=== PATIENT | female | born 2000 | race Caucasian/White ===

== ENCOUNTER 2021-04-18 11:09 | Emergency (ER) | payer SELFPAY ==
--- NOTE | 2021-04-18 11:19 | EDM.PDOC ---
ED HPI GENERAL MEDICAL PROBLEM - General Chief Complaint: Lower Extremity Injury/Pain Stated Complaint: UNKNOWN Time Seen by Provider: 04/18/21 11:15 Source of Information: Reports: Patient History Limitations: Reports: No Limitations - History of Present Illness INITIAL COMMENTS - FREE TEXT/NARRATIVE: HISTORY AND PHYSICAL: History of present illness: Patient is a 21-year-old female who presents to the emergency room with complaints of stepping on a nail. She [place] the [place] park [place] she stepped on a wei nail that had gone through the sole of her sandal and is in the heel of her right foot. She is fearful to have it removed, thus coming to the emergency room for evaluation. Unsure of her last tetanus update. She offers no systemic complaints and has no other concerns other bodily injury. Review of systems: As per history of present illness and below otherwise all systems reviewed and negative. Past medical history: As per history of present illness and as reviewed below otherwise noncontributory. Surgical history: As per history of present illness and as reviewed below otherwise noncontributory. Social history: See social history for further information Family history: As per history of present illness and as reviewed below otherwise noncontributory. Physical exam: General: Well developed and well nourished 21-year-old female. Alert and orientated x 3. Nontoxic in appearance and in no acute distress. Vital signs are stable and have been reviewed by me. Nursing notes were reviewed. HEENT: Atraumatic, normocephalic, pupils equal and reactive bilaterally, negative for conjunctival pallor or scleral icterus, mucous membranes moist, trachea midline. No drooling or trismus noted. No meningeal signs. No hot potato voice noted. Lungs: Clear to auscultation bilaterally. No wheezes, rales, or rhonchi. Chest nontender. Normal work of breathing, no accessory muscles used. Heart: S1S2, regular rate and rhythm without overt murmur, gallops, or rubs. No JVD. No peripheral edema Abdomen: Soft, nondistended, nontender. Skin: Puncture site to mid right heel without any surrounding erythema. Remaining skin is intact, warm, dry. No lesions or rashes noted. Hematologic: No petechiae or purpra. Mucosa appropriate color and normal nail bed color and refill. Extremities: Skin for details, ambulatory, moves all extremities per self without difficulty or deficits, negative for cords or calf pain. Neurovascular unremarkable. Strong pedal and pretibial pulses bilaterally. Cap refill less than 3 seconds bilaterally Neuro: Awake, alert, oriented. Cranial nerves II through XII unremarkable. Cerebellum unremarkable. Motor and sensory unremarkable throughout. Exam nonfocal. Psychiatric: Mood and affect are appropriate. Normal thought process. Answering questions appropriately. Notes: *This patient was seen and evaluated during the 2019 SARS-CoV-2 novel coronavirus pandemic period. Community viral transmission is ongoing at time of this encounter and the emergency department is operating under pandemic response procedures. Patient is a 21-year-old female who presents to the emergency room with complaints of a puncture wound to her right heel. The nail is currently still in the shoe and in the right heel. It appears that about 0.5 cm of nail is in the tissue and will be easy extraction. Otherwise physical exam is unremarkable. Explained procedure to patient prior to nail removal. The shoe strap was on done and the nail was easily removed as I was attempting to adjust her shoe. Appears that about 0.5 cm of the nail was in the calcaneus. I will get an x-ray to make sure there is no foreign body remaining. Area was thoroughly cleansed with chlorhexidine and allowed to soak in sterile water then irrigated with wound wash. I have talked with the patient about today's findings, in addition to providing specific details for plan of care. Reassessment at the time of disposition demonstrates that the patient is in no acute distress. The patient is stable for discharge, counseling was provided and we discussed in great detail signs and symptoms that would prompt them to return to the Emergency Department. Medication, follow up and supportive care measures were reviewed and discussed. Voices understanding and is agreeable to plan of care. Denies any further questions or concerns at this time. Diagnostics: X-ray Therapeutics: Tdap, wound care, bacitracin Prescription: Augmentin Impression: Puncture wound Plan: 1. You were evaluated today on an emergent basis. Keep the area clean and dry, cover the site with a Band-Aid until it has healed. Wash gently with mild soap and water twice daily. Continue to monitor the site for signs of improvement. Take the antibiotic as prescribed. 2. You can alternate Tylenol and ibuprofen as needed for pain and fever management. 3. We encourage you to follow up with podiatry as needed for re-evaluation and further care/management. 4. If your symptoms should worsen, new symptoms develop or any of the signs and symptoms we discussed should arise please return to the emergency room or call 911 (if needed). Definitive disposition and diagnosis as appropriate pending reevaluation and review of above. - Related Data Allergies Allergy/AdvReac Type Severity Reaction Status Date / Time No Known Allergies Allergy Verified 04/18/21 11:34 Home Meds: Home Meds Amoxicillin/Clavulanate K [Augmentin 875-125 MG] 1 tab PO BID 7 Days #14 tablet 04/18/21 [Rx] Ondansetron [Zofran ODT] 4 mg PO ASDIRECTED PRN 04/18/21 [History] Review of Systems - Review of Systems Review Of Systems: Comprehensive ROS is negative, except as noted in HPI. ED EXAM, GENERAL - Physical Exam Exam: See Below (See dictation) Course - Vital Signs Last Recorded V/S: Last Vital Signs Temp 98.1 F 04/18/21 11:35 Pulse 103 H 04/18/21 11:35 Resp 20 04/18/21 11:35 BP 143/85 H 04/18/21 11:35 Pulse Ox 96 04/18/21 11:35 - Orders/Labs/Meds Orders: Active Orders 24 hr Category Date Time Status Communication Order [RC] STAT Care 04/18/21 11:33 Ordered Vaccines to be Administered [RC] PER UNIT ROUTINE Care 04/18/21 11:29 Ordered Foot 2V Rt [CR] Stat Exams 04/18/21 11:29 Ordered Meds: Medications Discontinued Medications Generic Name Dose Route Start Last Admin Trade Name Freq PRN Reason Stop Dose Admin Acetaminophen 650 mg 04/18/21 11:29 Acetaminophen 325 Mg Tab PO 04/18/21 11:30 NOW ONE Bacitracin 1 dose 04/18/21 11:29 Bacitracin Oint 1 Gm U/D Packet TOP 04/18/21 11:30 ONETIME ONE Diphtheria/Tetanus/Acell Pertussis 0.5 ml 04/18/21 11:29 Diphtheria,Pertussis(Acell),Tetanus Vaccine 0.5 Ml Syringe IM 04/18/21 11:30 .ONCE ONE Departure - Departure Time of Disposition: 11:48 Disposition: Home, Self-Care 01 Clinical Impression: Puncture wound of foot - Discharge Information Prescriptions: Amoxicillin/Clavulanate K [Augmentin 875-125 MG] 1 tab PO BID 7 Days #14 tablet Instructions: Puncture Wound, [id number] Forms: ED Department Discharge Additional Instructions: The following information is given to patients seen in the emergency department who are being discharged to home. This information is to outline your options for follow-up care. We provide all patients seen in our emergency department with a follow-up referral. The need for follow-up, as well as the timing and circumstances, are variable depending upon the specifics of your emergency department visit. If you don't have a primary care physician on staff, we will provide you with a referral. We always advise you to contact your personal physician following an emergency department visit to inform them of the circumstance of the visit and for follow-up with them and/or the need for any referrals to a consulting specialist. The emergency department will also refer you to a specialist when appropriate. This referral assures that you have the opportunity for follow-up care with a specialist. All of these measure are taken in an effort to provide you with optimal care, which includes your follow-up. Under all circumstances we always encourage you to contact your private physician who remains a resource for coordinating your care. When calling for follow-up care, please make the office aware that this follow-up is from your recent emergency room visit. If for any reason you are refused follow-up, please contact the [facility] Emergency Department at and asked to speak to the emergency department charge nurse. [facility] [address] [place] [address] [id number] [address] [address] Thank you for choosing the [facility] emergency department in [place] for your medical needs today. It was a pleasure caring for you. Today you were seen in the emergency department for puncture wound. 1. You were evaluated today on an emergent basis. Keep the area clean and dry, cover the site with a Band-Aid until it has healed. Wash gently with mild soap and water twice daily. Continue to monitor the site for signs of improvement. Take the antibiotic as prescribed. 2. You can alternate Tylenol and ibuprofen as needed for pain and fever management. 3. We encourage you to follow up with podiatry as needed for re-evaluation and further care/management. 4. If your symptoms should worsen, new symptoms develop or any of the signs and symptoms we discussed should arise please return to the emergency room or call 911 (if needed). Sepsis Event Note (ED) - Focused Exam Vital Signs: Vital Signs Temp Pulse Resp BP Pulse Ox 04/18/21 11:35 98.1 F 103 H 20 143/85 H 96 - My Orders Last 24 Hours: My Active Orders 04/18/21 11:29 Vaccines to be Administered [RC] PER UNIT ROUTINE Foot 2V Rt [CR] Stat 04/18/21 11:33 Communication Order [RC] STAT - Assessment/Plan Last 24 Hours: My Active Orders 04/18/21 11:29 Vaccines to be Administered [RC] PER UNIT ROUTINE Foot 2V Rt [CR] Stat 04/18/21 11:33 Communication Order [RC] STAT
[2021-04-18] MEDS ORDERED: Bacitracin Oint 1 GM U/D Packet TOP ONE (11:29)
[2021-04-18] MEDS ORDERED: Diphtheria,Pertussis(Acell),Tetanus Vaccine 0.5 ML Syringe IM ONE (11:29)
[2021-04-18] MEDS ORDERED: Acetaminophen 325 MG Tab PO ONE (11:29)
--- NOTE | 2021-04-18 12:34 | CR ---
INDICATION: stepped on nail TECHNIQUE: Right foot 2 views COMPARISON: None. FINDINGS: Bones: Alignment is normal. No fractures or bone lesions. Joint spaces: Unremarkable. Soft tissues: Unremarkable. IMPRESSION: Unremarkable right foot. Dictated by: Diaz Huntley MD @ 04/18/2021 12:32:48 (Electronically Signed)
== END 2021-04-18 12:44 | disposition home or self-care (01) ==
LOC: MW.ED 11:09
DX: S91.331A Puncture wound without foreign body, right foot, initial encounter (principal); Z23 Encounter for immunization; W45.0XXA Nail entering through skin, initial encounter
CPT/HCPCS: 73620; 90471; 90715; 99283; A9270

== ENCOUNTER 2021-05-09 13:47 | Emergency (ER) | payer SELFPAY ==
[2021-05-09] MEDS ORDERED: Sodium Chloride 0.9% 10 ML Syringe FLUSH PRN (14:40)
[2021-05-09] MEDS ORDERED: Sodium Chloride 0.9% 2.5 ML Syringe FLUSH PRN (14:40)
--- NOTE | 2021-05-09 15:11 | EDM.PDOC ---
ED HPI GENERAL MEDICAL PROBLEM - General Chief Complaint: Gastrointestinal Problem Stated Complaint: BOOLD IN STOOL Time Seen by Provider: 05/09/21 13:53 Source of Information: Reports: Patient History Limitations: Reports: No Limitations - History of Present Illness INITIAL COMMENTS - FREE TEXT/NARRATIVE: HISTORY AND PHYSICAL: History of present illness: Patient is a 21-year-old female who presents emergency room today with concern of blood in her stool that occurred with a bowel movement just prior to arrival to the emergency room. Patient states that she has had a prior colonoscopy approximately 2 years ago and was told that she has IBS. Patient states that she had one other episode of blood in her stool and was seen in the emergency room 2 years ago which led to the colonoscopy. Patient states that she was post to repeat her colonoscopy recently but moved to [place] and needs to establish care to get this done. Patient states she is also having associated left-sided abdominal pain which has started over the last 2 to 3 days and then the blood in her stool today's was concerned and came to the emergency room. Patient states that she has had a prior diagnosis of "colitis "and states that she was not given any medications for this. Patient states that there is a chance of as she is sexually active and not on control but states that she did take a test 3 weeks ago which was negative. Patient denies any other abdominal surgeries or any other symptoms or concerns. Patient denies fever, chills, chest pain, shortness of breath, or cough. Denies headache, neck stiff ness, change in vision, syncope, or near syncope. Denies nausea, vomiting, diarrhea, constipation, or dysuria. Has not noted any blood in urine. Patient has been eating and drinking appropriately. Review of systems: As per history of present illness and below otherwise all systems reviewed and negative. Past medical history: As per history of present illness and as reviewed below otherwise noncontributory. Surgical history: As per history of present illness and as reviewed below otherwise noncontributory. Social history: See social history for further information Family history: As per history of present illness and as reviewed below otherwise noncontributory. Physical exam: General: Patient is alert, oriented, and in no acute distress. Patient sitting comfortably on exam table. Vitals stable and reviewed by me. HEENT: Atraumatic, normocephalic, pupils equal and reactive bilaterally, negative for conjunctival pallor or scleral icterus, mucous membranes moist, TMs normal bilaterally, throat clear, neck supple, nontender, trachea midline. No drooling or trismus noted. No meningeal signs. No hot potato voice noted. Lungs: Clear to auscultation, breath sounds equal bilaterally, chest nontender. Heart: S1S2, regular rate and rhythm without overt murmur Abdomen: Soft, nondistended, moderate left upper and left lower quadrant ab dominal pain with negative rebound and negative Timmons. Negative for masses or hepatosplenomegaly. Negative for costovertebral tenderness. Pelvis: Stable nontender. Genitourinary: [place] Packer at bedside Maribell Morales RN. No vaginal bleeding noted. Rectal: [place] Packer at bedside Maribell Morales RN. No blood, hematochezia, or melena. No obvious hemorrhoid, fissures, or masses. Rectal tone intact. H emoccult positive. Skin: Intact, warm, dry. No lesions or rashes noted. Extremities: Atraumatic, negative for cords or calf pain. Neurovascular unremarkable. Neuro: Awake, alert, oriented. Cranial nerves II through XII unremarkable. Cerebellum unremarkable. Motor and sensory unremarkable throughout. Exam nonfocal. Notes: Patient is a 21-year-old female, who presents emergency room today with concern of left-sided abdominal pain x3 days and an episode of bright red blood in her stool that occurred just prior to travel to the emergency room. Upon arrival to the ED, patient is vitally stable and well-appearing on exam. Given the status of the emergency room, patient was triaged to a fast-track area. There are no beds available at this time to do a thorough rectal/genitourinary exam. Do plan to transition patient to a bed when one becomes available to perform remainder of physical exam. However, will obtain IV access, routine lab work, with plan to do abdominal pelvic CT scan with contrast after negative hCG testing and reassess patient. /rectal exam has a positive Hemoccult however, no gross blood, hematochezia, or dark stools. No obvious hemorrhoid masses or lesions noted. CBC unremarkable. CMP shows mild hypokalemia at 3.3 otherwise unremarkable. Lipase within normal limits. hCG negative. Urinalysis clear. Hemoccult positive. Abdominal pelvic CT scan shows a left ovarian cyst measuring 2.1 cm with small free fluid in the deep pelvis suggestive of recent cyst rupture. Otherwise, no acute findings. Repeat H&H stable. Upon reevaluation of patient, she remains vitally stable and comfortable throughout stay in ED. Strict return precautions thoroughly discussed with patient. Discussed importance for follow-up with a primary care provider as well as general surgery for colonoscopy outpatient. Voices understanding and is agreeable to plan of care. Denies any further questions or concerns at this time. Diagnostics: CBC, CMP, UA, lipase, hCG, abdominal pelvic CT with contrast, Hemoccult, repeat H&H Therapeutics: Saline lock Prescription: None Impression: Hemoccult positive Abdominal pain, unspecified Ovarian cyst Plan: 1. You can take Tylenol as directed for pain and discomfort. 2. Follow-up with a primary care provider and general surgeon, primary care provider, and women's health provider as discussed. The number has been provided above for you to call and establish an appointment time. Return to the ED as needed and as discussed. Definitive disposition and diagnosis as appropriate pending reevaluation and review of above. left lower abdomen Pain Score (Numeric/FACES): 7 - Related Data Allergies Allergy/AdvReac Type Severity Reaction Status Date / Time No Known Allergies Allergy Verified 05/09/21 14:16 Home Meds: Home Meds Omeprazole 20 mg PO DAILY 04/18/21 [History] Ondansetron [Zofran ODT] 4 mg PO ASDIRECTED PRN 04/18/21 [History] Past Medical History HEENT History: Reports: None Cardiovascular History: Reports: None Respiratory History: Reports: None Gastrointestinal History: Reports: Irritable Bowel Syndrome Other Gastrointestinal History: colitis Genitourinary History: Reports: None [employer] History: Reports: None Musculoskeletal History: Reports: None Neurological History: Reports: None Psychiatric History: Reports: None Endocrine/Metabolic History: Reports: None Hematologic History: Reports: None Immunologic History: Reports: None Oncologic (Cancer) History: Reports: None Dermatologic History: Reports: None - Infectious Disease History Infectious Disease History: Reports: Chicken Pox - Past Surgical History Head Surgeries/Procedures: Reports: None HEENT Surgical History: Reports: None Cardiovascular Surgical History: Reports: None Respiratory Surgical History: Reports: None GI Surgical History: Reports: None Female Surgical History: Reports: None Endocrine Surgical History: Reports: None Neurological Surgical History: Reports: None Musculoskeletal Surgical History: Reports: None Oncologic Surgical History: Reports: None Dermatological Surgical History: Reports: None Social & Family History - Family History Family Medical History: No Pertinent Family History - Tobacco Use Tobacco Use Status *Q: Never Tobacco User - Caffeine Use Caffeine Use: Reports: Soda, Tea - Recreational Drug Use Recreational Drug Use: No ED ROS GENERAL - Review of Systems Review Of Systems: Comprehensive ROS is negative, except as noted in HPI. ED EXAM, GENERAL - Physical Exam Exam: See Below (see dictation) Course - Vital Signs Last Recorded V/S: Last Vital Signs Temp 97.1 F 05/09/21 14:17 Pulse 82 05/09/21 17:50 Resp 18 05/09/21 17:50 BP 109/79 05/09/21 17:50 Pulse Ox 97 05/09/21 17:50 - Orders/Labs/Meds Orders: Active Orders 24 hr Category Date Time Status Saline Lock Insert [OM.PC] Stat Oth 05/09/21 14:40 Ordered Labs: Laboratory Tests 05/09/21 05/09/21 05/09/21 Range/Units 14:21 14:21 14:51 WBC 7.43 (4.0-11.0) K/uL RBC 4.69 (4.30-5.90) M/uL Hgb 13.7 (12.0-16.0) g/dL Hct 40.8 (36.0-46.0) % MCV 87.0 (80.0-98.0) fL MCH 29.2 (27.0-32.0) pg MCHC 33.6 (31.0-37.0) g/dL RDW Std Deviation 41.4 (28.0-62.0) fl RDW Coeff of Kori 13 (11.0-15.0) % Plt Count 263 (150-400) K/uL MPV 9.90 (7.40-12.00) fL Neut % (Auto) 67.6 (48.0-80.0) % Lymph % (Auto) 23.6 (16.0-40.0) % Cherry % (Auto) 6.6 (0.0-15.0) % Eos % (Auto) 1.9 (0.0-7.0) % Baso % (Auto) 0.3 (0.0-1.5) % Neut # (Auto) 5.0 (1.4-5.7) K/uL Lymph # (Auto) 1.8 (0.6-2.4) K/uL Cherry # (Auto) 0.5 (0.0-0.8) K/uL Eos # (Auto) 0.1 (0.0-0.7) K/uL Baso # (Auto) 0.0 (0.0-0.1) K/uL Nucleated RBC % 0.0 /100WBC Nucleated RBCs # 0 K/uL Sodium (136-145) mmol/L Potassium (3.5-5.1) mmol/L Chloride (98-107) mmol/L Carbon Dioxide (21.0-32.0) mmol/L BUN (7.0-18.0) mg/dL Creatinine (0.6-1.0) mg/dL Est Cr Clr Drug Dosing mL/min Estimated GFR (MDRD) ml/min Glucose (74-106) mg/dL Calcium (8.5-10.1) mg/dL Total Bilirubin (0.2-1.0) mg/dL AST (15-37) IU/L ALT (14-63) IU/L Alkaline Phosphatase (46-116) U/L Total Protein (6.4-8.2) g/dL Albumin (3.4-5.0) g/dL Globulin (2.6-4.0) g/dL Albumin/Globulin Ratio (0.9-1.6) Lipase (73-393) U/L Urine Color YELLOW Urine Appearance CLEAR Urine pH 6.5 (5.0-8.0) Ur Specific [place] 1.010 (1.001-1.035) Urine Protein NEGATIVE (NEGATIVE) mg/dL Urine Glucose (UA) NEGATIVE (NEGATIVE) mg/dL Urine Ketones NEGATIVE (NEGATIVE) mg/dL Urine Occult Blood NEGATIVE (NEGATIVE) Urine Nitrite NEGATIVE (NEGATIVE) Urine Bilirubin NEGATIVE (NEGATIVE) Urine Urobilinogen 0.2 (<2.0) EU/dL Ur Leukocyte Esterase NEGATIVE (NEGATIVE) Urine HCG, Qual NEGATIVE (NEGATIVE) 05/09/21 05/09/21 Range/Units 14:51 17:20 WBC (4.0-11.0) K/uL RBC (4.30-5.90) M/uL Hgb 12.9 (12.0-16.0) g/dL Hct 38.8 (36.0-46.0) % MCV (80.0-98.0) fL MCH (27.0-32.0) pg MCHC (31.0-37.0) g/dL RDW Std Deviation (28.0-62.0) fl RDW Coeff of Kori (11.0-15.0) % Plt Count (150-400) K/uL MPV (7.40-12.00) fL Neut % (Auto) (48.0-80.0) % Lymph % (Auto) (16.0-40.0) % Cherry % (Auto) (0.0-15.0) % Eos % (Auto) (0.0-7.0) % Baso % (Auto) (0.0-1.5) % Neut # (Auto) (1.4-5.7) K/uL Lymph # (Auto) (0.6-2.4) K/uL Cherry # (Auto) (0.0-0.8) K/uL Eos # (Auto) (0.0-0.7) K/uL Baso # (Auto) (0.0-0.1) K/uL Nucleated RBC % /100WBC Nucleated RBCs # K/uL Sodium 139 (136-145) mmol/L Potassium 3.3 L (3.5-5.1) mmol/L Chloride 103 (98-107) mmol/L Carbon Dioxide 26.5 (21.0-32.0) mmol/L BUN 13 (7.0-18.0) mg/dL Creatinine 0.8 (0.6-1.0) mg/dL Est Cr Clr Drug Dosing 100.94 mL/min Estimated GFR (MDRD) > 60.0 ml/min Glucose 101 (74-106) mg/dL Calcium 9.0 (8.5-10.1) mg/dL Total Bilirubin 0.6 (0.2-1.0) mg/dL AST 16 (15-37) IU/L ALT 34 (14-63) IU/L Alkaline Phosphatase 80 (46-116) U/L Total Protein 7.6 (6.4-8.2) g/dL Albumin 4.1 (3.4-5.0) g/dL Globulin 3.5 (2.6-4.0) g/dL Albumin/Globulin Ratio 1.2 (0.9-1.6) Lipase 121 (73-393) U/L Urine Color Urine Appearance Urine pH (5.0-8.0) Ur Specific [place] (1.001-1.035) Urine Protein (NEGATIVE) mg/dL Urine Glucose (UA) (NEGATIVE) mg/dL Urine Ketones (NEGATIVE) mg/dL Urine Occult Blood (NEGATIVE) Urine Nitrite (NEGATIVE) Urine Bilirubin (NEGATIVE) Urine Urobilinogen (<2.0) EU/dL Ur Leukocyte Esterase (NEGATIVE) Urine HCG, Qual (NEGATIVE) Meds: Medications Discontinued Medications Generic Name Dose Route Start Last Admin Trade Name Freq PRN Reason Stop Dose Admin Iopamidol 100 ml 05/09/21 16:26 05/09/21 16:27 Iopamidol 755 Mg/Ml 500 Ml Multipack Bottle IVPUSH 05/09/21 16:27 100 ml ONETIME STA Administration Sodium Chloride 10 ml 05/09/21 14:40 05/09/21 17:46 Sodium Chloride 0.9% 10 Ml Syringe FLUSH 10 ml ASDIRECTED PRN Administration Keep Vein Open Sodium Chloride 2.5 ml 05/09/21 14:40 05/09/21 17:47 Sodium Chloride 0.9% 2.5 Ml Syringe FLUSH 2.5 ml ASDIRECTED PRN Administration Keep Vein Open Departure - Departure Time of Disposition: 17:59 Disposition: Home, Self-Care 01 Clinical Impression: Guaiac positive stools Abdominal pain Qualifiers: Abdominal location: unspecified location Qualified Code(s): R10.9 - Unspecified abdominal pain Ovarian cyst Qualifiers: Laterality: left Qualified Code(s): N83.202 - Unspecified ovarian cyst, left side - Discharge Information Instructions: Abdominal Pain, Adult, [id number] Referrals: PCP,Not In Area [Primary Care Provider] - Forms: ED Department Discharge Additional Instructions: The following information is given to patients seen in the emergency department who are being discharged to home. This information is to outline your options for follow-up care. We provide all patients seen in our emergency department with a follow-up referral. The need for follow-up, as well as the timing and circumstances, are variable depending upon the specifics of your emergency department visit. If you don't have a primary care physician on staff, we will provide you with a referral. We always advise you to contact your personal physician following an emergency department visit to inform them of the circumstance of the visit and for follow-up with them and/or the need for any referrals to a consulting specialist. The emergency department will also refer you to a specialist when appropriate. This referral assures that you have the opportunity for follow-up care with a specialist. All of these measure are taken in an effort to provide you with optimal care, which includes your follow-up. Under all circumstances we always encourage you to contact your private physician who remains a resource for coordinating your care. When calling for follow-up care, please make the office aware that this follow-up is from your recent emergency room visit. If for any reason you are refused follow-up, please contact the [facility] Emergency Department at and asked to speak to the emergency department charge nurse. [facility] [address] [place] [address] [facility] [address] [place] [id number] [facility] Professional Building [address] [place] [address], [address] [place] [address] [facility] [address], [place] [address] 1. You can take Tylenol as directed for pain and discomfort. 2. Follow-up with a primary care provider and general surgeon, primary care provider, and women's health provider as discussed. The number has been provided above for you to call and establish an appointment time. Return to the ED as needed and as discussed. Sepsis Event Note (ED) - Evaluation Sepsis Screening Result: No Definite Risk - Focused Exam Vital Signs: Vital Signs Temp Pulse Resp BP Pulse Ox 05/09/21 17:50 82 18 109/79 97 05/09/21 14:17 97.1 F 94 18 129/72 98 - My Orders Last 24 Hours: My Active Orders 05/09/21 14:40 Saline Lock Insert [OM.PC] Stat - Assessment/Plan Last 24 Hours: My Active Orders 05/09/21 14:40 Saline Lock Insert [OM.PC] Stat
[2021-05-09 15:26] LABS: BLOOD UREA NITROGEN,BUN 13 mg/dL (7.0-18.0); CARBON DIOXIDE,CO2 26.5 mmol/L (21.0-32.0); CHLORIDE,CL 103 mmol/L (98-107); GLUCOSE RANDOM 101 mg/dL (74-106); LIPASE 121 U/L (73-393); POTASSIUM,K 3.3 mmol/L (3.5-5.1); SODIUM,NA 139 mmol/L (136-145)
[2021-05-09] MEDS ORDERED: Iopamidol 755 MG/ML 500 ML Multipack Bottle IVPUSH STA (16:26)
--- NOTE | 2021-05-09 17:12 | CT ---
INDICATION: Left-sided abdominal pain TECHNIQUE: Axial images were obtained from the diaphragm to the pubic symphysis. Reformats were obtained in the coronal and sagittal plane. IV Contrast: 100 cc Isovue 370 Oral Contrast: None COMPARISON: None. FINDINGS: Lower chest: Unremarkable. Liver: Unremarkable. Normal in size and attenuation. No masses. Gallbladder and bile ducts: Gallbladder is contracted, grossly unremarkable. Spleen: Unremarkable. Normal in size without mass. Pancreas: Unremarkable. No mass or inflammation. Adrenal glands: Unremarkable. No nodules. Kidneys: Unremarkable. No masses, stones, or hydronephrosis. Vasculature: Unremarkable. GI tract: The stomach is unremarkable. No dilated loops of large or small intestine. Appendix unremarkable. Pelvis: Bladder unremarkable. Anteverted uterus. Left ovarian cyst/corpus luteum measuring 2.1 cm. Small free fluid in the pelvis. Bones: Unremarkable for age. IMPRESSION: 1. Left ovarian cyst/corpus luteum measuring 2.1 centimeters with small free fluid in the deep pelvis suspicious for recent cyst rupture. Please note that all CT scans at this facility use dose modulation, iterative reconstruction, and/or weight-based dosing when appropriate to reduce radiation dose to as low as reasonably achievable. Dictated by Get Banuelos MD @ 05/09/2021 5:11:[address] Get Banuelos @ May 09 2021 5:11PM
== END 2021-05-09 18:30 | disposition home or self-care (01) ==
LOC: MW.ED 13:47
DX: K92.1 Melena (principal); N83.202 Unspecified ovarian cyst, left side; Z79.899 Other long term (current) drug therapy
CPT/HCPCS: 36415; 74177; 80053; 81003; 81025; 83690; 85014; 85018; 85025; 99285; Q9967

== ENCOUNTER 2021-06-12 14:50 | Emergency (ER) | payer SELFPAY ==
[2021-06-12 16:52] LABS: BLOOD UREA NITROGEN,BUN 10 mg/dL (7.0-18.0); CARBON DIOXIDE,CO2 26.7 mmol/L (21.0-32.0); CHLORIDE,CL 101 mmol/L (98-107); GLUCOSE RANDOM 82 mg/dL (74-106); POTASSIUM,K 3.6 mmol/L (3.5-5.1); SODIUM,NA 139 mmol/L (136-145)
[2021-06-12] MEDS ORDERED: Iopamidol 755 Mg/ML 100 ML Bottle IVPUSH ONE (18:36)
--- NOTE | 2021-06-12 19:54 | EDM.PDOC ---
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 Patient states that yesterday the pain was primary in her left lower abdomen but today it is more in the right lower abdomen. Patient states that she began bleeding vaginally today and was not sure if this was her menstrual cycle or if she may be . Patient states her last menstrual cycle was on 04/15 and she is actively trying to get . Patient states that she has had 2 prior miscarriages early on in and states that she does not have any children. Patient states that she began having lower abdominal pain that radiates to her back and bleeding today thinking she might be miscarrying. Patient states that she took 2 at home test and one was difficult to read/inconclusive and the other 1 was negative today. Patient states she does have a history of ovarian cysts. Patient states she has not taken anything for her symptoms. Patient denies fever, chills, chest pain, shortness of breath, or cough. Denies headache, neck stiff ness, change in vision, syncope, or near syncope. Denies nausea, vomiting, diarrhea, constipation, or dysuria. Has not noted any blood in urine or stool. Patient has been eating and drinking appropriately. Review of systems: As per history of present illness and below otherwise all systems reviewed and negative. Past medical history: As per history of present illness and as reviewed below otherwise noncontributory. Surgical history: As per history of present illness and as reviewed below otherwise no ncontributory. Social history: See social history for further information Family history: As per history of present illness and as reviewed below otherwise noncontributory. Physical exam: General: Patient is alert, oriented, and in no acute distress. Patient laying comfortably on exam table. Vitals stable and reviewed by me. HEENT: Atraumatic, normocephalic, pupils equal and reactive bilaterally, negative for conjunctival pallor or scleral icterus, mucous membranes moist, TMs normal bilaterally, throat clear, neck supple, nontender, trachea midline. No drooling or trismus noted. No meningeal signs. No hot potato voice noted. Lungs: Clear to auscultation, breath sounds equal bilaterally, chest nontender. Heart: S1S2, regular rate and rhythm without overt murmur Abdomen: Soft, nondistended, moderate RLQ tenderness without guarding. Negative for masses or hepatosplenomegaly. Negative for costovertebral tenderness. Pelvis: Stable nontender. Genitourinary: Deferred. Rectal: Deferred. I did offer a exam but patient declines-all risks vs benefits discussed with patient and expresses understanding. Skin: Intact, warm, dry. No lesions or rashes noted. Extremities: Atraumatic, negative for cords or calf pain. Neurovascular unremarkable. Neuro: Awake, alert, oriented. Cranial nerves II through XII unremarkable. Cerebellum unremarkable. Motor and sensory unremarkable throughout. Exam nonfocal. Notes: Patient is a 21-year-old female presents emergency room today with concern of lower abdominal pain, more isolated to the right lower quadrant today but was left lower quadrant yesterday with concern of possible early . Upon arrival to the ED, patient is vitally stable and well-appearing on exam but does have mild to moderate right lower quadrant tenderness without guarding. Will obtain lab work, serum hCG quant and Qual, and reassess patient. CBC, CMP are unremarkable. Lipase is within normal limits. hCG quant is negative/Qual is negative. Urinalysis is clear. Upon reevaluation of patient, she remains vitally stable and comfortable throughout stay in emergency room. At this time, patient is still having mild to moderate right lower quadrant abdominal pain on exam. Discussed with patient obtaining an abdominal pelvic CT scan and agreeable to plan. Due to status of the ED, there is a delay in radiology reading of patients abd/pelvic CT scan and she is requesting to leave the ED prior to radiology interpretation. Encouraged patient to wait for radiology results but she declines as "it is taking so long and I am tired of being here". All risk versus benefits of leaving the ED without knowing interpretation / possible concern for appendicitis discussed with patient and expresses understanding stating she will return to the ED if scan shows anything concerning. I did discuss with patient that if her CT scan does have anything concerning, I will call her with results and encouraged her to return to the ED. Denies any further questions or concerns at this time. Abd/pelvic CT w cont shows dilated appendix at 7.4 mm in diameter without fat stranding. Early acute appendicitis not excluded. Large amount of feces in the colon. I did call and speak to the general surgeon on-call, Dr. Suárez, and thoroughly discussed patient's case. He states that since patient felt well enough to leave the emergency room prior to abdominal pelvic CT scan being read as well as her normal lab work and vitals, he would like to see patient in the morning at his clinic for revaluation and to return to the ED if her symptoms worsen. I did call and speak to patient on the phone directly and she states that her abdominal pain is getting worse and that she does feel nauseous now and like she is going to vomit. I instructed patient to return to the emergency room immediately giving worsening symptoms and now progression of her symptoms of nausea and possible vomiting. Patient states that she is on her way to return back to the emergency room. Diagnostics: CBC, CMP, UA, Lipase, Hcg quant/qual, Abd/Pelvic CT w cont Therapeutics: None Prescription: None Impression: Lower abdominal pain, possible early acute appendicitis Constipation Plan: Patient left ED prior to Abd/Pelvic CT scan as she felt she was waiting too long. Abd/Pelvic ct scan shows possible early appendicitis. Call made to patient and worsening symptoms and encouraged to return to ED immediately. Definitive disposition and diagnosis as appropriate pending reevaluation and review of above. lower abdomen Pain Score (Numeric/FACES): 8 - Related Data Allergies Allergy/AdvReac Type Severity Reaction Status Date / Time No Known Allergies Allergy Verified 06/12/21 15:44 Home Meds: Home Meds Omeprazole 20 mg PO DAILY 04/18/21 [History] Ondansetron [Zofran ODT] 4 mg PO ASDIRECTED PRN 04/18/21 [History] Past Medical History HEENT History: Reports: None Cardiovascular History: Reports: None Respiratory History: Reports: None Gastrointestinal History: Reports: Irritable Bowel Syndrome Other Gastrointestinal History: colitis Genitourinary History: Reports: None SWEETBREAD TRIMMER History: Reports: None Musculoskeletal History: Reports: None Neurological History: Reports: None Psychiatric History: Reports: None Endocrine/Metabolic History: Reports: None Hematologic History: Reports: None Immunologic History: Reports: None Oncologic (Cancer) History: Reports: None Dermatologic History: Reports: None - Infectious Disease History Infectious Disease History: Reports: Chicken Pox - Past Surgical History Head Surgeries/Procedures: Reports: None HEENT Surgical History: Reports: None Cardiovascular Surgical History: Reports: None Respiratory Surgical History: Reports: None GI Surgical History: Reports: None Female Surgical History: Reports: None Endocrine Surgical History: Reports: None Neurological Surgical History: Reports: None Musculoskeletal Surgical History: Reports: None Oncologic Surgical History: Reports: None Dermatological Surgical History: Reports: None Social & Family History - Family History Family Medical History: No Pertinent Family History - Tobacco Use Tobacco Use Status *Q: Never Tobacco User Second Hand Smoke Exposure: No - Caffeine Use Caffeine Use: Reports: None - Recreational Drug Use Recreational Drug Use: No ED ROS GENERAL - Review of Systems Review Of Systems: Comprehensive ROS is negative, except as noted in HPI. ED EXAM, GENERAL - Physical Exam Exam: See Below (see dictation) Course - Vital Signs Last Recorded V/S: Last Vital Signs Temp 97.2 F 06/12/21 20:00 Pulse 70 06/12/21 20:00 Resp 20 06/12/21 20:00 BP 115/80 06/12/21 20:00 Pulse Ox 99 06/12/21 20:00 - Orders/Labs/Meds Orders: Active Orders 24 hr Category Date Time Status Abdomen Pelvis w Cont [CT] Stat Exams 06/12/21 16:55 Taken Labs: Laboratory Tests 06/12/21 06/12/21 06/12/21 Range/Units 15:50 16:03 16:03 WBC 7.87 (4.0-11.0) K/uL RBC 4.81 (4.30-5.90) M/uL Hgb 14.0 (12.0-16.0) g/dL Hct 42.0 (36.0-46.0) % MCV 87.3 (80.0-98.0) fL MCH 29.1 (27.0-32.0) pg MCHC 33.3 (31.0-37.0) g/dL RDW Std Deviation 41.8 (28.0-62.0) fl RDW Coeff of Kori 13 (11.0-15.0) % Plt Count 288 (150-400) K/uL MPV 9.80 (7.40-12.00) fL Neut % (Auto) 65.3 (48.0-80.0) % Lymph % (Auto) 23.9 (16.0-40.0) % [place] % (Auto) 9.0 (0.0-15.0) % Eos % (Auto) 1.5 (0.0-7.0) % Baso % (Auto) 0.3 (0.0-1.5) % Neut # (Auto) 5.1 (1.4-5.7) K/uL Lymph # (Auto) 1.9 (0.6-2.4) K/uL [place] # (Auto) 0.7 (0.0-0.8) K/uL Eos # (Auto) 0.1 (0.0-0.7) K/uL Baso # (Auto) 0.0 (0.0-0.1) K/uL Nucleated RBC % 0.0 /100WBC Nucleated RBCs # 0 K/uL Sodium 139 (136-145) mmol/L Potassium 3.6 (3.5-5.1) mmol/L Chloride 101 (98-107) mmol/L Carbon Dioxide 26.7 (21.0-32.0) mmol/L BUN 10 (7.0-18.0) mg/dL Creatinine 0.7 (0.6-1.0) mg/dL Est Cr Clr Drug Dosing 115.36 mL/min Estimated GFR (MDRD) > 60.0 ml/min Glucose 82 (74-106) mg/dL Calcium 8.7 (8.5-10.1) mg/dL Total Bilirubin 0.6 (0.2-1.0) mg/dL AST 17 (15-37) IU/L ALT 30 (14-63) IU/L Alkaline Phosphatase 84 (46-116) U/L Total Protein 7.8 (6.4-8.2) g/dL Albumin 4.3 (3.4-5.0) g/dL Globulin 3.5 (2.6-4.0) g/dL Albumin/Globulin Ratio 1.2 (0.9-1.6) Lipase (73-393) U/L HCG, Qual (NEG) HCG, Quant mIU/mL Urine Color YELLOW Urine Appearance CLEAR Urine pH 7.0 (5.0-8.0) Ur Specific [place] 1.025 (1.001-1.035) Urine Protein NEGATIVE (NEGATIVE) mg/dL Urine Glucose (UA) NEGATIVE (NEGATIVE) mg/dL Urine Ketones NEGATIVE (NEGATIVE) mg/dL Urine Occult Blood NEGATIVE (NEGATIVE) Urine Nitrite NEGATIVE (NEGATIVE) Urine Bilirubin NEGATIVE (NEGATIVE) Urine Urobilinogen 0.2 (<2.0) EU/dL Ur Leukocyte Esterase NEGATIVE (NEGATIVE) 06/12/21 06/12/21 06/12/21 Range/Units 16:03 16:03 16:03 WBC (4.0-11.0) K/uL RBC (4.30-5.90) M/uL Hgb (12.0-16.0) g/dL Hct (36.0-46.0) % MCV (80.0-98.0) fL MCH (27.0-32.0) pg MCHC (31.0-37.0) g/dL RDW Std Deviation (28.0-62.0) fl RDW Coeff of Kori (11.0-15.0) % Plt Count (150-400) K/uL MPV (7.40-12.00) fL Neut % (Auto) (48.0-80.0) % Lymph % (Auto) (16.0-40.0) % [place] % (Auto) (0.0-15.0) % Eos % (Auto) (0.0-7.0) % Baso % (Auto) (0.0-1.5) % Neut # (Auto) (1.4-5.7) K/uL Lymph # (Auto) (0.6-2.4) K/uL [place] # (Auto) (0.0-0.8) K/uL Eos # (Auto) (0.0-0.7) K/uL Baso # (Auto) (0.0-0.1) K/uL Nucleated RBC % /100WBC Nucleated RBCs # K/uL Sodium (136-145) mmol/L Potassium (3.5-5.1) mmol/L Chloride (98-107) mmol/L Carbon Dioxide (21.0-32.0) mmol/L BUN (7.0-18.0) mg/dL Creatinine (0.6-1.0) mg/dL Est Cr Clr Drug Dosing mL/min Estimated GFR (MDRD) ml/min Glucose (74-106) mg/dL Calcium (8.5-10.1) mg/dL Total Bilirubin (0.2-1.0) mg/dL AST (15-37) IU/L ALT (14-63) IU/L Alkaline Phosphatase (46-116) U/L Total Protein (6.4-8.2) g/dL Albumin (3.4-5.0) g/dL Globulin (2.6-4.0) g/dL Albumin/Globulin Ratio (0.9-1.6) Lipase 98 (73-393) U/L HCG, Qual NEGATIVE (NEG) HCG, Quant < 1.0 mIU/mL Urine Color Urine Appearance Urine pH (5.0-8.0) Ur Specific [place] (1.001-1.035) Urine Protein (NEGATIVE) mg/dL Urine Glucose (UA) (NEGATIVE) mg/dL Urine Ketones (NEGATIVE) mg/dL Urine Occult Blood (NEGATIVE) Urine Nitrite (NEGATIVE) Urine Bilirubin (NEGATIVE) Urine Urobilinogen (<2.0) EU/dL Ur Leukocyte Esterase (NEGATIVE) Meds: Medications Discontinued Medications Generic Name Dose Route Start Last Admin Trade Name Freq PRN Reason Stop Dose Admin Iopamidol 100 ml 06/12/21 18:36 06/12/21 18:37 Iopamidol 755 Mg/Ml 100 Ml Bottle IVPUSH 06/12/21 18:37 100 ml ONETIME ONE Administration Departure - Departure Time of Disposition: 19:53 Disposition: Home, Self-Care 01 Clinical Impression: Abdominal pain Qualifiers: Abdominal location: lower abdomen, unspecified Qualified Code(s): R10.30 - Lower abdominal pain, unspecified - Discharge Information Referrals: PCP,None [Primary Care Provider] - Forms: ED Department Discharge Additional Instructions: Patient requested to leave ED prior to abd/pelvic CT radiology interpretation. Patient called and encouraged to return to ED after worsening s/s and abd/pelvic showing possible early appendicitis. Sepsis Event Note (ED) - Focused Exam Vital Signs: Vital Signs Temp Pulse Resp BP Pulse Ox 06/12/21 20:00 97.2 F 70 20 115/80 99 06/12/21 17:40 82 18 123/66 97 06/12/21 16:56 98.0 F 82 18 128/71 97 06/12/21 15:42 97.5 F 94 18 126/84 98 - My Orders Last 24 Hours: My Active Orders 06/12/21 16:55 Abdomen Pelvis w Cont [CT] Stat - Assessment/Plan Last 24 Hours: My Active Orders 06/12/21 16:55 Abdomen Pelvis w Cont [CT] Stat
--- NOTE | 2021-06-12 21:22 | CT ---
INDICATION: Right lower quadrant pain TECHNIQUE: CT abdomen and pelvis acquired with 100 cc Isovue 370 IV contrast. COMPARISON: May 09, 2021 FINDINGS: Lower chest: Unremarkable. Liver: Unremarkable. Spleen: Unremarkable. Pancreas: Unremarkable. Gallbladder and bile ducts: Unremarkable. Adrenal glands: Unremarkable. Kidneys: Unremarkable. GI tract: The appendix measures 7.4 mm in diameter. No periappendiceal fat stranding. Large amount of feces in the colon. Vascular structures: Unremarkable. Lymph nodes: Unremarkable. Miscellaneous: Unremarkable. No free air or significant free fluid. Pelvic Organs: There is a tampon in the vaginal canal. Bones: Unremarkable for age. IMPRESSION: Dilated appendix. Early acute appendicitis cannot be excluded. Large amount of feces in the colon. Findings discussed with KAROLYN Valenzuela at 9:19 p.m. on June 12, 2021. Please note that all CT scans at this facility use dose modulation, iterative reconstruction, and/or weight-based dosing when appropriate to reduce radiation dose to as low as reasonably achievable. Dictated by Radha Poon MD @ 06/12/2021 9:20:[address] Radha Poon @ Jun 12 2021 9:20PM
== END 2021-06-12 20:00 | disposition home or self-care (01) ==
LOC: MW.ED 14:50
DX: R10.31 Right lower quadrant pain (principal); K59.00 Constipation, unspecified; Z87.42 Personal history of other diseases of the female genital tract
CPT/HCPCS: 36415; 74177; 80053; 81003; 83690; 84702; 84703; 85025; 99284; Q9967

== ENCOUNTER 2021-06-12 21:50 | Day surgery (SDC) | payer SELFPAY ==
[2021-06-12] MEDS ORDERED: Sodium Chloride 0.9% 1,000 ML IV ONE (22:11)
[2021-06-12] MEDS ORDERED: cefOXitin 2 GM in Premix Bag 1 BAG IV ONE (22:15)
[2021-06-12] MEDS ORDERED: Ondansetron 4 MG/2 ML SDV IVPUSH ONE (22:15)
--- NOTE | 2021-06-12 22:15 | EDM.PDOC ---
ED HPI GENERAL MEDICAL PROBLEM - General Chief Complaint: Abdominal Pain Stated Complaint: APPENDIX ISSUE Time Seen by Provider: 06/12/21 21:58 Source of Information: Reports: Patient History Limitations: Reports: No Limitations - History of Present Illness INITIAL COMMENTS - FREE TEXT/NARRATIVE: Patient is a 21-year-old female who presents today for right lower quadrant pain. Patient was seen here earlier around 4 PM and her CAT scan showed a dilated appendix possible appendicitis. Patient left because she did not want to wait for the results but when results were called and patient was informed that she was still not feeling better and she is feeling more nauseous and increased pain and has had to come in today for evaluation. The PA to saw the patient earlier called and spoke to the surgeon they 1 repeat CBC and come in evaluate patient. Abdominal Pain Score (Numeric/FACES): 10 - Related Data Allergies Allergy/AdvReac Type Severity Reaction Status Date / Time No Known Allergies Allergy Verified 06/12/21 15:44 Home Meds: Home Meds Omeprazole 20 mg PO DAILY 04/18/21 [History] Ondansetron [Zofran ODT] 4 mg PO ASDIRECTED PRN 04/18/21 [History] Past Medical History HEENT History: Reports: None Cardiovascular History: Reports: None Respiratory History: Reports: None Gastrointestinal History: Reports: Irritable Bowel Syndrome Other Gastrointestinal History: colitis Genitourinary History: Reports: None [place] History: Reports: None Musculoskeletal History: Reports: None Neurological History: Reports: None Psychiatric History: Reports: None Endocrine/Metabolic History: Reports: None Hematologic History: Reports: None Immunologic History: Reports: None Oncologic (Cancer) History: Reports: None Dermatologic History: Reports: None - Infectious Disease History Infectious Disease History: Reports: Chicken Pox - Past Surgical History Head Surgeries/Procedures: Reports: None HEENT Surgical History: Reports: None Cardiovascular Surgical History: Reports: None Respiratory Surgical History: Reports: None GI Surgical History: Reports: None Female Surgical History: Reports: None Endocrine Surgical History: Reports: None Neurological Surgical History: Reports: None Musculoskeletal Surgical History: Reports: None Oncologic Surgical History: Reports: None Dermatological Surgical History: Reports: None Social & Family History - Family History Family Medical History: No Pertinent Family History - Caffeine Use Caffeine Use: Reports: None ED ROS GENERAL - Review of Systems Review Of Systems: See Below Constitutional: Reports: No Symptoms HEENT: Reports: No Symptoms Respiratory: Reports: No Symptoms Cardiovascular: Reports: No Symptoms Endocrine: Reports: No Symptoms GI/Abdominal: Reports: Abdominal Pain : Reports: No Symptoms Musculoskeletal: Reports: No Symptoms Skin: Reports: No Symptoms Neurological: Reports: No Symptoms Psychiatric: Reports: No Symptoms Hematologic/Lymphatic: Reports: No Symptoms Immunologic: Reports: No Symptoms ED EXAM, GI/ABD - Physical Exam Exam: See Below Exam Limited By: No Limitations General Appearance: Alert, WD/WN, No Apparent Distress Eyes: Bilateral: EOMI Respiratory/Chest: No Respiratory Distress, Lungs Clear, Normal Breath Sounds Cardiovascular: Normal Peripheral Pulses, Regular Rate, Rhythm GI/Abdominal Exam: Tender (RLQ and LLQ) Neurological: Alert, Oriented, Normal Cognition Course - Vital Signs Last Recorded V/S: Last Vital Signs Temp 97.4 F 06/12/21 22:05 Pulse 100 06/12/21 22:05 Resp 20 06/12/21 22:05 BP 128/87 06/12/21 22:05 Pulse Ox 98 06/12/21 22:05 - Orders/Labs/Meds Orders: Active Orders 24 hr Category Date Time Status Sodium Chloride 0.9% [Normal Saline] 1,000 ml Med 06/12/21 22:11 Active IV .BOLUS Medication Orders Sodium Chloride (Normal Saline) 1,000 mls @ 150 mls/hr IV .BOLUS ONE Stop: 06/13/21 04:50 Last Admin: 06/12/21 22:34 Dose: 150 mls/hr Documented by: YOAN Labs: Laboratory Tests 06/12/21 06/12/21 Range/Units 22:10 22:10 WBC 9.42 (4.0-11.0) K/uL RBC 4.91 (4.30-5.90) M/uL Hgb 14.5 (12.0-16.0) g/dL Hct 42.4 (36.0-46.0) % MCV 86.4 (80.0-98.0) fL MCH 29.5 (27.0-32.0) pg MCHC 34.2 (31.0-37.0) g/dL RDW Std Deviation 41.0 (28.0-62.0) fl RDW Coeff of Kori 13 (11.0-15.0) % Plt Count 278 (150-400) K/uL MPV 9.90 (7.40-12.00) fL Neut % (Auto) 66.3 (48.0-80.0) % Lymph % (Auto) 25.7 (16.0-40.0) % [place] % (Auto) 6.5 (0.0-15.0) % Eos % (Auto) 1.1 (0.0-7.0) % Baso % (Auto) 0.4 (0.0-1.5) % Neut # (Auto) 6.3 H (1.4-5.7) K/uL Lymph # (Auto) 2.4 (0.6-2.4) K/uL [place] # (Auto) 0.6 (0.0-0.8) K/uL Eos # (Auto) 0.1 (0.0-0.7) K/uL Baso # (Auto) 0.0 (0.0-0.1) K/uL Nucleated RBC % 0.0 /100WBC Nucleated RBCs # 0 K/uL SARS-CoV-2 RNA (JOANA) NEGATIVE (NEGATIVE) Meds: Medications Generic Name Dose Route Start Last Admin Trade Name Freq PRN Reason Stop Dose Admin Sodium Chloride 1,000 mls @ 150 mls/hr 06/12/21 22:11 06/12/21 22:34 Normal Saline IV 06/13/21 04:50 150 mls/hr .BOLUS ONE Administration Discontinued Medications Generic Name Dose Route Start Last Admin Trade Name Freq PRN Reason Stop Dose Admin Cefoxitin Sodium 2 gm/ Premix 50 mls @ 100 mls/hr 06/12/21 22:15 06/12/21 22:31 IV 06/12/21 22:44 100 mls/hr ONETIME ONE Administration Morphine Sulfate 2 mg 06/12/21 23:06 Morphine 2 Mg/Ml Syringe IVPUSH 06/12/21 23:07 ONETIME ONE Ondansetron HCl 4 mg 06/12/21 22:15 06/12/21 22:30 Ondansetron 4 Mg/2 Ml Sdv IVPUSH 06/12/21 22:16 4 mg ONETIME ONE Administration - Re-Assessments/Exams Free Text/Narrative Re-Assessment/Exam: 06/12/21 23:17 Patient be taken OR for removal of appendix. Departure - Departure Time of Disposition: 23:18 Disposition: Refer to Observation Condition: Good Clinical Impression: Appendicitis - Discharge Information *PRESCRIPTION DRUG MONITORING PROGRAM REVIEWED*: Not Applicable *COPY OF PRESCRIPTION DRUG MONITORING REPORT IN PATIENT TANK: Not Applicable Referrals: PCP,None [Primary Care Provider] - Forms: ED Department Discharge Sepsis Event Note (ED) - Focused Exam Vital Signs: Vital Signs Temp Pulse Resp BP Pulse Ox 06/12/21 22:05 97.4 F 100 20 128/87 98 - My Orders Last 24 Hours: My Active Orders 06/12/21 22:11 Sodium Chloride 0.9% [Normal Saline] 1,000 ml IV .BOLUS - Assessment/Plan Last 24 Hours: My Active Orders 06/12/21 22:11 Sodium Chloride 0.9% [Normal Saline] 1,000 ml IV .BOLUS Plan: Patient is a 21-year-old female who presents today for evaluation of possible appendicitis. Patient had a CAT scan labs done earlier. We spoke to general surgeon about the case they want a repeat CBC and will come and see patient and make decision if he needs admission or not.
[2021-06-12] MEDS ORDERED: Morphine 2 MG/ML SYRINGE IVPUSH ONE (23:06)
--- NOTE | 2021-06-12 23:38 | PCM.SN.2 ---
- Free Text/Narrative Note: pt seen, chart reviewed; abd pain 36 hrs, w nause, and progressing worse, pain scale was 7 1st ED visit, now it is 10, and nausea; ct dilated appendix 7.4 mm, wbc increased to 9.7 from 6.7; proceed to surgery, appendectomy, lap vs open; rb dw pt, re bleeding/infection/damage to nearby organs; pt concurred and proceed; iv fluid, iv mefoxin 2 gm, and informed consent; [id number]
[2021-06-12] MEDS ORDERED: Rocuronium Bromide 50 MG/5 ML Syringe ONE (23:47)
[2021-06-12] MEDS ORDERED: Glycopyrrolate 0.2 MG/ML SDV ONE (23:47)
[2021-06-12] MEDS ORDERED: Ketorolac 30 MG/ML SDV ONE (23:47)
[2021-06-12] MEDS ORDERED: Dexamethasone 4 MG/ML 5 ML MDV ONE (23:47)
[2021-06-12] MEDS ORDERED: Metoclopramide 10 MG/2 ML SDV ONE (23:47)
[2021-06-12] MEDS ORDERED: Ondansetron 4 MG/2 ML SDV ONE (23:47)
[2021-06-12] MEDS ORDERED: Sugammadex Sodium 200 MG/2 ML VIAL ONE (23:47)
[2021-06-12] MEDS ORDERED: Propofol 200 MG/20 ML SDV ONE (23:48)
[2021-06-12] MEDS ORDERED: fentaNYL 250 MCG/5 ML SDV ONE (23:55)
--- NOTE | 2021-06-13 00:04 | PCM.PREANE ---
Preanesthetic Assessment - Procedure Proposed Procedure: Laparoscopic Appendectomy - Anesthesia/Transfusion/Family Hx Anesthesia History: No Prior Anesthesia Family History of Anesthesia Reaction: No - Review of Systems General: No Symptoms Pulmonary: No Symptoms Cardiovascular: No Symptoms Gastrointestinal: No Symptoms, Other (history of GERD, took prescription yesterday; nausea treated with zofran ) Neurological: No Symptoms Other: Reports: None - Physical Assessment NPO Status Date: 06/12/21 NPO Status Time: 20:00 Vital Signs: Last Vital Signs Temp 36.3 C 06/12/21 22:05 Pulse 100 06/12/21 22:05 Resp 20 06/12/21 22:05 BP 128/87 06/12/21 22:05 Pulse Ox 98 06/12/21 22:05 Height: 5 ft 5 in Weight: 74.843 kg ASA Class: 1E Mental Status: Alert & Oriented x3 Airway Class: Mallampati = 2 Dentition: Reports: Normal Dentition Thyro-Mental Finger Breadths: 3 Mouth Opening Finger Breadths: 3 ROM/Head Extension: Full Lungs: Clear to Auscultation, Normal Respiratory Effort Cardiovascular: Regular Rate, Regular Rhythm - Lab Values: Laboratory Last Values WBC 9.42 K/uL (4.0-11.0) 06/12/21 22:10 RBC 4.91 M/uL (4.30-5.90) 06/12/21 22:10 Hgb 14.5 g/dL (12.0-16.0) 06/12/21 22:10 Hct 42.4 % (36.0-46.0) 06/12/21 22:10 MCV 86.4 fL (80.0-98.0) 06/12/21 22:10 MCH 29.5 pg (27.0-32.0) 06/12/21 22:10 MCHC 34.2 g/dL (31.0-37.0) 06/12/21 22:10 RDW Std Deviation 41.0 fl (28.0-62.0) 06/12/21 22:10 RDW Coeff of Kori 13 % (11.0-15.0) 06/12/21 22:10 Plt Count 278 K/uL (150-400) 06/12/21 22:10 MPV 9.90 fL (7.40-12.00) 06/12/21 22:10 Neut % (Auto) 66.3 % (48.0-80.0) 06/12/21 22:10 Lymph % (Auto) 25.7 % (16.0-40.0) 06/12/21 22:10 [place] % (Auto) 6.5 % (0.0-15.0) 06/12/21 22:10 Eos % (Auto) 1.1 % (0.0-7.0) 06/12/21 22:10 Baso % (Auto) 0.4 % (0.0-1.5) 06/12/21 22:10 Neut # (Auto) 6.3 K/uL (1.4-5.7) H 06/12/21 22:10 Lymph # (Auto) 2.4 K/uL (0.6-2.4) 06/12/21 22:10 [place] # (Auto) 0.6 K/uL (0.0-0.8) 06/12/21 22:10 Eos # (Auto) 0.1 K/uL (0.0-0.7) 06/12/21 22:10 Baso # (Auto) 0.0 K/uL (0.0-0.1) 06/12/21 22:10 Nucleated RBC % 0.0 /100WBC 06/12/21 22:10 Nucleated RBCs # 0 K/uL 06/12/21 22:10 SARS-CoV-2 RNA (JOANA) NEGATIVE (NEGATIVE) 06/12/21 22:10 - Allergies Allergies/Adverse Reactions: Allergies Allergy/AdvReac Type Severity Reaction Status Date / Time No Known Allergies Allergy Verified 06/12/21 15:44 - Anesthesia Plan Med Last Dose Date: 06/13/21 (Morphine 2 mg in ER and Tylenol at 1600) - Acknowledgements Anesthesia Type Planned: General Anesthesia Pt an Appropriate Candidate for the Planned Anesthesia: Yes Alternatives and Risks of Anesthesia Discussed w Pt/Guardian: Yes Pt/Guardian Understands and Agrees with Anesthesia Plan: Yes PreAnesthesia Questionnaire HEENT History: Reports: None Cardiovascular History: Reports: None Respiratory History: Reports: None Gastrointestinal History: Reports: Irritable Bowel Syndrome Other Gastrointestinal History: colitis Genitourinary History: Reports: None 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 Musculoskeletal History: Reports: None Neurological History: Reports: None Psychiatric History: Reports: None Endocrine/Metabolic History: Reports: None Hematologic History: Reports: None Immunologic History: Reports: None Oncologic (Cancer) History: Reports: None Dermatologic History: Reports: None - Infectious Disease History Infectious Disease History: Reports: Chicken Pox - Past Surgical History Head Surgeries/Procedures: Reports: None HEENT Surgical History: Reports: None Cardiovascular Surgical History: Reports: None Respiratory Surgical History: Reports: None GI Surgical History: Reports: None Female Surgical History: Reports: None Endocrine Surgical History: Reports: None Neurological Surgical History: Reports: None Musculoskeletal Surgical History: Reports: None Oncologic Surgical History: Reports: None Dermatological Surgical History: Reports: None - SUBSTANCE USE Tobacco Use Status *Q: Never Tobacco User Tobacco Use Within Last Twelve Months: No Recreational Drug Use History: No - HOME MEDS Home Medications: Home Meds Omeprazole 20 mg PO DAILY 04/18/21 [History] Ondansetron [Zofran ODT] 4 mg PO ASDIRECTED PRN 04/18/21 [History] - CURRENT (IN HOUSE) MEDS Current Meds: Current Medications Sodium Chloride (Normal Saline) 1,000 mls @ 150 mls/hr IV .BOLUS ONE Stop: 06/13/21 04:50 Last Admin: 06/12/21 22:34 Dose: 150 mls/hr Documented by: Discontinued Medications Dexamethasone (Dexamethasone 4 Mg/Ml 5 Ml Mdv) Confirm Administered Dose 20 mg .ROUTE .STK-MED ONE Stop: 06/12/21 23:48 Glycopyrrolate (Glycopyrrolate 0.2 Mg/Ml Sdv) Confirm Administered Dose 0.2 mg .ROUTE .STK-MED ONE Stop: 06/12/21 23:48 Cefoxitin Sodium 2 gm/ Premix 50 mls @ 100 mls/hr IV ONETIME ONE Stop: 06/12/21 22:44 Last Admin: 06/12/21 22:31 Dose: 100 mls/hr Documented by: Acetaminophen (Ofirmev 1000 Mg/100 Ml) Confirm Administered Dose 100 mls @ as directed .ROUTE .STK-MED ONE Stop: 06/12/21 23:49 Ketorolac Tromethamine (Ketorolac 30 Mg/Ml Sdv) Confirm Administered Dose 30 mg .ROUTE .STK-MED ONE Stop: 06/12/21 23:48 Lidocaine HCl (Lidocaine 1% 5 Ml Sdv) Confirm Administered Dose 5 ml .ROUTE .STK-MED ONE Stop: 06/12/21 23:48 Metoclopramide HCl (Metoclopramide 10 Mg/2 Ml Sdv) Confirm Administered Dose 10 mg .ROUTE .STK-MED ONE Stop: 06/12/21 23:48 Morphine Sulfate (Morphine 2 Mg/Ml Syringe) 2 mg IVPUSH ONETIME ONE Stop: 06/12/21 23:07 Last Admin: 06/12/21 23:25 Dose: 2 mg Documented by: Ondansetron HCl (Ondansetron 4 Mg/2 Ml Sdv) 4 mg IVPUSH ONETIME ONE Stop: 06/12/21 22:16 Last Admin: 06/12/21 22:30 Dose: 4 mg Documented by: Ondansetron HCl (Ondansetron 4 Mg/2 Ml Sdv) Confirm Administered Dose 4 mg .ROUTE .STK-MED ONE Stop: 06/12/21 23:48 Propofol (Propofol 200 Mg/20 Ml Sdv) Confirm Administered Dose 200 mg .ROUTE .STK-MED ONE Stop: 06/12/21 23:49 Rocuronium Butler (Rocuronium Butler 50 Mg/5 Ml Syringe) Confirm Administered Dose 50 mg .ROUTE .STK-MED ONE Stop: 06/12/21 23:48 Succinylcholine Chloride (Succinylcholine Chloride 200 Mg/10 Ml Syr) Confirm Administered Dose 200 mg .ROUTE .STK-MED ONE Stop: 06/12/21 23:48 Sugammadex Sodium (Sugammadex Sodium 200 Mg/2 Ml Vial) Confirm Administered Dose 200 mg .ROUTE .STK-MED ONE Stop: 06/12/21 23:48
[2021-06-13] MEDS ORDERED: Naloxone 0.4 MG/ML Syringe IVPUSH PRN (00:42)
[2021-06-13] MEDS ORDERED: Morphine 2 MG/ML SYRINGE IVPUSH PRN (00:42)
[2021-06-13] MEDS ORDERED: Ondansetron 4 MG/2 ML SDV IVPUSH PRN (00:42)
[2021-06-13] MEDS ORDERED: fentaNYL 100 MCG/2 ML SDV IVPUSH PRN (00:42)
[2021-06-13] MEDS ORDERED: HYDROmorphone 1 MG/ML Syringe IVPUSH PRN (00:42)
[2021-06-13] MEDS ORDERED: Albuterol 0.083% 2.5 MG/3 ML Neb Soln NEB PRN (00:42)
--- NOTE | 2021-06-13 01:24 | PCM.OPNOTE ---
- General Post-Op/Procedure Note Date of Surgery/Procedure: 06/13/21 Operative Procedure(s): lap appendectomy Findings: appendix was dilated, hyperemic and indurated cw appendicitis; perf is not observed; [id number] Pre Op Diagnosis: acute appendicitis Post-Op Diagnosis: Same Anesthesia Technique: General ET Tube Primary Surgeon: Lonny Suárez Complications: None Condition: Good Free Text/Narrative:: Intake & Output 06/12/21 06/12/21 06/13/21 14:59 22:59 06:59 Output Total 100 Balance -100
[2021-06-13] MEDS ORDERED: Acetaminophen/oxyCODONE 325-5 MG Tab PO PRN (01:27)
[2021-06-13] MEDS ORDERED: Lactated Ringers 1,000 ML IV SCH (01:30)
--- NOTE | 2021-06-13 01:36 | PCM48HPAN ---
Post Anesthesia Note - EVALUATION WITHIN 48HRS OF ANESTHETIC Vital Signs in Normal Range: Yes Patient Participated in Evaluation: Yes Respiratory Function Stable: Yes Airway Patent: Yes Cardiovascular Function Stable: Yes Hydration Status Stable: Yes Pain Control Satisfactory: Yes Nausea and Vomiting Control Satisfactory: Yes Mental Status Recovered: Yes Vital Signs: Last Vital Signs Temp 36.8 C 06/13/21 01:22 Pulse 108 H 06/13/21 01:30 Resp 11 L 06/13/21 01:30 BP 127/73 06/13/21 01:30 Pulse Ox 100 06/13/21 01:30
--- NOTE | 2021-06-13 01:36 | PCM.POSTAN ---
POST ANESTHESIA ASSESSMENT - MENTAL STATUS Mental Status: Alert, Oriented - VITAL SIGNS Vital Signs: Last Vital Signs Temp 36.8 C 06/13/21 01:22 Pulse 108 H 06/13/21 01:30 Resp 11 L 06/13/21 01:30 BP 127/73 06/13/21 01:30 Pulse Ox 100 06/13/21 01:30 - RESPIRATORY Respiratory Status: Respiratory Rate WNL, Airway Patent, O2 Saturation Stable - CARDIOVASCULAR CV Status: Pulse Rate WNL, Blood Pressure Stable - GASTROINTESTINAL GI Status: No Symptoms - POST OP HYDRATION Hydration Status: Adequate & Stable
[2021-06-13] MEDS ORDERED: Bupivacaine 25%/EPINEPHrine/PF 30 ML ONE (01:37)
[2021-06-13] MEDS: Ondansetron 4 MG/2 ML SDV IVPUSH PRN ×3 (02:58→16:58)
[2021-06-13] MEDS: Morphine 4 MG/ML Syringe IVPUSH PRN ×2 (03:02→08:43)
--- NOTE | 2021-06-13 07:33 | HP ---
DATE OF : 2000 PRIMARY CARE PHYSICIAN: None PCP ADMISSION DIAGNOSIS: Abdominal pain. HISTORY OF PRESENT ILLNESS: The patient is a 21-year-old lady, seen in emergency room this afternoon, complaining about 1-day history of gradual onset of abdominal pain, first in the left lower quadrant and subsequently concentrated on the right lower quadrant. Seen in the emergency room. Workup, everything essentially normal. White count is 7.6. CAT scan was performed, but the patient does not want to wait for the results and left. CAT scan came back with dilated appendix about 7.4 mm and called early appendicitis cannot be excluded. Talked to the patient at home, and the patient came back to the emergency room as the pain is getting worse. Also, the patient felt nauseated and wanted to throw up. Last meal was about 3 hours ago, and the patient kept it down, but says she is about to throw out. PAST MEDICAL HISTORY: Significant for no diabetes, PA, CVA, hypertension. PAST SURGICAL HISTORY: None. ALLERGIES: Please refer to nursing notes for details. MEDICATION: Please refer to nursing notes for details. FAMILY HISTORY: Noncontributory. SOCIAL HISTORY: No tobacco, no alcohol. PHYSICAL EXAMINATION: GENERAL: A very pleasant lady, but obviously anxious and with ill-feeling appearance, in no acute distress. HEENT: Normocephalic, atraumatic. Sclerae are anicteric. LUNGS: Clear to auscultation. HEART: Regular rate and rhythm. ABDOMEN: Soft, nondistended. No pulsating tender midline abdominal structure, and no surgical scar. Tenderness at the left lower quadrant and epigastrium and right lower quadrant, and the worse according to the patient is the right lower quadrant. No rebound tenderness, and positive Rovsing sign. On repeat, white count increased to 9.7 from 6.7. IMPRESSION: Clinical history and imaging study and also progressing history, clinical situation, consistent with possible acute appendicitis. The patient would benefit from timely surgical intervention, appendectomy, laparoscopic versus open. Risks and benefits discussed with the patient regarding bleeding, infection, and damage to nearby organ, possible drain placement if perforated. The patient concurred with surgical plan and started with IV fluid and IV antibiotic, Mefoxin 2 g IV, and proceed to operating room for appendectomy, laparoscopic versus open. As always, thank you for kind referral. CARRIE / GISELLE /[id number]
--- NOTE | 2021-06-13 15:12 | OR ---
SURGEON: Lonny Suárez MD DATE OF PROCEDURE: 06/13/2021 PREOPERATIVE DIAGNOSIS: Acute appendicitis. POSTOPERATIVE DIAGNOSIS: Acute appendicitis. PROCEDURE PERFORMED: Laparoscopic appendectomy. COMPLICATIONS: None. FINDINGS: Appendix was dilated, hyperemic, and indurated consistent with appendicitis. Perforation was not observed. DESCRIPTION OF PROCEDURE: The patient was taken to the operating room and placed in the supine position. Following induction of general endotracheal anesthesia, the patient's abdomen was prepped and draped in the sterile fashion. A time-out has been called. The patient was identified. The procedure was identified. The antibiotics were identified. The procedure then proceeded. The abdomen was prepped and draped in a standard fashion. After assessment of appropriate landmarks, a 12 millimeter trocar was inserted supraumbilically using Optiview and pneumoperitoneum was then achieved. This was followed with placement of 5 millimeter port in the right upper quadrant and another 5 millimeter port infraumbilically. The camera was inserted supraumbilical site and two laparoscopic Sana retractors were then inserted through the other two sites. Following the cecum, the appendix was located. The appendix was then lifted up, and using a GI stapler the appendix was amputated at the base. And using the GI stapler, the mesoappendix was then amputated. The appendix was retrieved by an endoscopic bag and sent for pathologist. This was then followed by re-insertion of the camera to examine the staple line, and hemostasis. The trocars were then removed. The umbilical site was closed with 2-0 Vicryl deep stitch and 4 -0 Vicryl and Dermabond; the other 2 5 mm port sites were closed with 4-0 Vicryl and Dermabond. Prior to closing, sponge count and instrument count was correct. Upon conclusion of the surgery, the trocar site was closed by skin staple followed with appropriate dressing. The patient was awakened, extubated, and transferred to Recovery in hemodynamically stable condition. The patient tolerated the procedure well. There were no intraoperative complication. Time- out and instrument check had been performed, and Dr. Suárez was present throughout the whole procedure. As always, thank you for the kind referral. CARRIE / GISELLE /[id number]
== END 2021-06-13 17:25 | disposition home or self-care (01) ==
LOC: MW.ED 21:50 → MW.SDS 23:19 → MW.MS 23:30 → MW.SDS 06-13 17:25
PROVIDERS: ATTEND Surgery
DX: K35.80 Unspecified acute appendicitis (principal); E11.9 Type 2 diabetes mellitus without complications; I25.2 Old myocardial infarction; I10 Essential (primary) hypertension; Z20.822 Contact with and (suspected) exposure to COVID-19; Z86.73 Personal history of transient ischemic attack (TIA), and cerebral infarction without residual deficits; Z79.899 Other long term (current) drug therapy
CPT/HCPCS: 36415; 44970; 85025; 87635; 96365; 96375; 99284; A9270; C1776; J0131; J0330; J0694; J1100; J1885; J2270; J2405; J2704; J2765; J3010; J3490; J7030; J7120; 00840; U0002

== ENCOUNTER 2021-06-21 17:26 | Emergency (ER) | payer SELFPAY ==
--- NOTE | 2021-06-21 19:21 | EDM.PDOC ---
ED HPI GENERAL MEDICAL PROBLEM - General Chief Complaint: Skin Complaint Stated Complaint: INCISION BUSTED OPEN Time Seen by Provider: 06/21/21 17:58 Source of Information: Reports: Patient History Limitations: Reports: No Limitations - History of Present Illness INITIAL COMMENTS - FREE TEXT/NARRATIVE: HISTORY AND PHYSICAL: History of present illness: Patient is a 21-year-old female who presents emergency room today with concern of question about her bellybutton incision after a recent appendectomy. Patient states that she had her appendix removed last time that she was seen here in the emergency room. Patient states that since then, she has been doing well and getting better each day. Patient states that she had a follow-up appointment today with a general surgeon, Dr. Bryce Donnelly and states that he removed the bhavana of her incision today. At that time, he states that there was an abnormality about the umbilical incision but placed a Steri-Strip over it and was told to come to the emergency room if it opened up. Patient states that right after her appointment, she had coughed, and felt a pulling sensation and felt that the area had opened up so came to the emergency room. Patient denies any drainage or increase in pain and states that she is getting better each day and not worse. Patient states that she had tried to call back to his clinic and was instructed to come to the emergency room as he did not have the availability to see her according to patient. Patient denies fever, chills, chest pain, shortness of breath, or cough. Denies headache, neck stiff ness, change in vision, syncope, or near syncope. Denies nausea, vomiting, abdominal pain, diarrhea, constipation, or dysuria. Has not noted any blood in urine or stool. Patient has been eating and drinking appropriately. Review of systems: As per history of present illness and below otherwise all systems reviewed and negative. Past medical history: As per history of present illness and as reviewed below otherwise noncontributory. Surgical history: As per history of present illness and as reviewed below otherwise noncontributory. Social history: See social history for further information Family history: As per history of present illness and as reviewed below otherwise noncontributory. Physical exam: General: Patient is alert, oriented, and in no acute distress. Patient sitting comfortably on exam table. Vitals stable and reviewed by me. HEENT: Atraumatic, normocephalic, pupils equal and reactive bilaterally, negative for conjunctival pallor or scleral icterus, mucous membranes moist, TMs normal bilaterally, throat clear, neck supple, nontender, trachea midline. No drooling or trismus noted. No meningeal signs. No hot potato voice noted. Lungs: Clear to auscultation, breath sounds equal bilaterally, chest nontender. Heart: S1S2, regular rate and rhythm without overt murmur Abdomen: There appears to be an extra skin flap of the incision which appears to be connected to scar tissue from a prior healed umbilical piercing without opening of incision, no drainage noted, no erythema. Otherwise, soft, nondistended, nontender. Negative for masses or hepatosplenomegaly. Negative for costovertebral tenderness. Pelvis: Stable nontender. Genitourinary: Deferred. Rectal: Deferred. Skin: Intact, warm, dry. No lesions or rashes noted. Extremities: Atraumatic, negative for cords or calf pain. Neurovascular unremarkable. Neuro: Awake, alert, oriented. Cranial nerves II through XII unremarkable. Cerebellum unremarkable. Motor and sensory unremarkable throughout. Exam nonfocal. Notes: Dr. Donnelly, general surgery, has come in to personally see and evaluate the patient. See his official consult note for further treatment and disposition. Strict return precautions thoroughly discussed with patient. Discussed importance for follow-up with a general surgeon and primary care provider. Voices understanding and is agreeable to plan of care. Denies any further questions or concerns at this time. Diagnostics: None Therapeutics: None Prescription: None Impression: Problem of surgical incision Plan: 1. Follow-up with a primary care provider and general surgeon as discussed. Return to the ED as needed and as discussed. Definitive disposition and diagnosis as appropriate pending reevaluation and review of above. 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 Musculoskeletal History: Reports: None Neurological History: Reports: None Psychiatric History: Reports: Anxiety Endocrine/Metabolic History: Reports: None Hematologic History: Reports: None Immunologic History: Reports: None Oncologic (Cancer) History: Reports: None Dermatologic History: Reports: None - Infectious Disease History Infectious Disease History: Reports: Chicken Pox - Past Surgical History Head Surgeries/Procedures: Reports: None HEENT Surgical History: Reports: None Cardiovascular Surgical History: Reports: None Respiratory Surgical History: Reports: None GI Surgical History: Reports: Appendectomy Female Surgical History: Reports: None Endocrine Surgical History: Reports: None Neurological Surgical History: Reports: None Musculoskeletal Surgical History: Reports: None Oncologic Surgical History: Reports: None Dermatological Surgical History: Reports: None Social & Family History - Family History Family Medical History: No Pertinent Family History - Tobacco Use Tobacco Use Status *Q: Never Tobacco User - Caffeine Use Caffeine Use: Reports: None - Recreational Drug Use Recreational Drug Use: No ED ROS GENERAL - Review of Systems Review Of Systems: Comprehensive ROS is negative, except as noted in HPI. ED EXAM, SKIN/RASH Exam: See Below (see dictation) Course - Vital Signs Last Recorded V/S: Last Vital Signs Temp 97.6 F 06/21/21 19:31 Pulse 88 06/21/21 19:31 Resp 18 06/21/21 19:31 BP 117/76 06/21/21 19:31 Pulse Ox 97 06/21/21 19:31 - Orders/Labs/Meds Orders: Active Orders 24 hr Category Date Time Status Consult to Physician [CONS] Stat Cons 06/21/21 19:01 Active Labs: Laboratory Tests 06/21/21 Range/Units 18:38 WBC 7.68 (4.0-11.0) K/uL RBC 4.54 (4.30-5.90) M/uL Hgb 13.2 (12.0-16.0) g/dL Hct 39.2 (36.0-46.0) % MCV 86.3 (80.0-98.0) fL MCH 29.1 (27.0-32.0) pg MCHC 33.7 (31.0-37.0) g/dL RDW Std Deviation 40.7 (28.0-62.0) fl RDW Coeff of Kori 13 (11.0-15.0) % Plt Count 292 (150-400) K/uL MPV 9.50 (7.40-12.00) fL Neut % (Auto) 62.1 (48.0-80.0) % Lymph % (Auto) 29.9 (16.0-40.0) % [place] % (Auto) 6.0 (0.0-15.0) % Eos % (Auto) 1.7 (0.0-7.0) % Baso % (Auto) 0.3 (0.0-1.5) % Neut # (Auto) 4.8 (1.4-5.7) K/uL Lymph # (Auto) 2.3 (0.6-2.4) K/uL [place] # (Auto) 0.5 (0.0-0.8) K/uL Eos # (Auto) 0.1 (0.0-0.7) K/uL Baso # (Auto) 0.0 (0.0-0.1) K/uL Nucleated RBC % 0.0 /100WBC Nucleated RBCs # 0 K/uL Departure - Departure Time of Disposition: 19:19 Disposition: Home, Self-Care 01 Clinical Impression: Problem involving surgical incision - Discharge Information Instructions: Wound Care, Adult Referrals: PCP,None [Primary Care Provider] - Forms: ED Department Discharge Additional Instructions: The following information is given to patients seen in the emergency department who are being discharged to home. This information is to outline your options f or follow-up care. We provide all patients seen in our emergency department with a follow-up referral. The need for follow-up, as well as the timing and circumstances, are variable depending upon the specifics of your emergency department visit. If you don't have a primary care physician on staff, we will provide you with a referral. We always advise you to contact your personal physician following an emergency department visit to inform them of the circumstance of the visit and for follow-up with them and/or the need for any referrals to a consulting specialist. The emergency department will also refer you to a specialist when appropriate. This referral assures that you have the opportunity for follow-up care with a specialist. All of these measure are taken in an effort to provide you with optimal care, which includes your follow-up. Under all circumstances we always encourage you to contact your private physician who remains a resource for coordinating your care. When calling for follow-up care, please make the office aware that this follow-up is from your recent emergency room visit. If for any reason you are refused follow-up, please contact the [facility] Emergency Department at and asked to speak to the emergency department charge nurse. [facility] [address], [place] [address] [facility] [address] [place] [address] [facility] - General Surgery Professional Building [address] [place] [address], [address] [place] [address] 1. Follow-up with a primary care provider and general surgeon as discussed. Return to the ED as needed and as discussed. Sepsis Event Note (ED) - Evaluation Sepsis Screening Result: No Definite Risk - Focused Exam Vital Signs: Vital Signs Temp Pulse Resp BP Pulse Ox 06/21/21 19:31 97.6 F 88 18 117/76 97 06/21/21 18:02 97.1 F 81 18 121/85 97 - My Orders Last 24 Hours: My Active Orders 06/21/21 19:01 Consult to Physician [CONS] Stat - Assessment/Plan Last 24 Hours: My Active Orders 06/21/21 19:01 Consult to Physician [CONS] Stat
--- NOTE | 2021-06-22 12:03 | PN ---
SUBJECTIVE: I saw patient earlier today. She is a patient of Dr. Suárez, who had laparoscopic appendectomy. She is due to some bhavana removed. They are irritating her, some discomfort. The bhavana were removed today in the clinic. However, right at the umbilicus, there was noticeable separation of the skin in the middle. Steri-Strips were placed. The patient says at home the wound opened up more. She had to come to the ER. Overall, the patient again said she feels good. Really denying any abdominal pain, nausea, or vomiting. Abdomen is soft. Her umbilical incision was re- examined. The edges of the umbilical skin are pulling away, actually shows that there is an underlying skin layer that approximates the skin. It looks like the skin had healed but had formed lip or the superior edge underneath the inferior edge where the skin was connected, but did raise a little skin flap. No adipose seen. No drainage. ASSESSMENT/PLAN: A pleasant 21-year-old female status post laparoscopic appendectomy, to look at her umbilical incision. It is closed, just the skin edges have not approximated well with the inferior one lapping over causing a little bit of a skin lip. I did go over with the patient what this is. It looks like currently it is healing well. No erythema. I did go over with the patient that she is to follow up with Dr. Suárez. Potentially after I think it has healed, the skin lip might go away or if it is prominent she wants it fixed, potentially have to fix in a month or so after she has time for this wound to heal to try to reapproximate the skin edges to avoid that flap. This might also occur because of her old umbilical bilirubin tract. All of the patient's questions were answered. She had some labs, CBC which was within normal limits. I did explain this all to her and her mother. I also explained to the ERT. The patient will be discharged. The patient may just keep a thin layer antibiotics and Band-Aid on it. No need to pack since the wound is not actually open. She is to come back if she has any questions or concerns. ZORAIDA / GISELLE /[id number]
== END 2021-06-21 19:31 | disposition home or self-care (01) ==
LOC: MW.ED 17:26
DX: T81.31XA Disruption of external operation (surgical) wound, not elsewhere classified, initial encounter (principal); Z79.899 Other long term (current) drug therapy
CPT/HCPCS: 36415; 85025; 99283

== ENCOUNTER 2021-08-10 13:08 | Emergency (ER) | payer MEDICAID ==
[2021-08-10] MEDS ORDERED: Sodium Chloride 0.9% 1,000 ML IV ONE (15:25)
[2021-08-10] MEDS ORDERED: Sodium Chloride 0.9% 2.5 ML Syringe FLUSH PRN (15:25)
[2021-08-10] MEDS ORDERED: Sodium Chloride 0.9% 10 ML Syringe FLUSH PRN (15:25)
[2021-08-10] MEDS ORDERED: Ondansetron 4 MG/2 ML SDV IVPUSH ONE (15:25)
--- NOTE | 2021-08-10 15:26 | EDM.PDOC ---
ED HPI GENERAL MEDICAL PROBLEM - General Chief Complaint: [facility] [employer] Problem Stated Complaint: EST 8-9 WEEKS PREG/SHARP ABDOMINAL PAINS Time Seen by Provider: 08/10/21 15:16 Source of Information: Reports: Patient History Limitations: Reports: No Limitations - History of Present Illness INITIAL COMMENTS - FREE TEXT/NARRATIVE: HISTORY AND PHYSICAL: History of present illness: The patient is a 21-year-old that is approximately 9 weeks who presents to the emergency department with bilateral lower abdominal pain that started yesterday. Around 2 AM this morning she had some vomiting. She also had one episode of diarrhea after dinner last night. Patient does have a history of Crohn's and IBS. The patient denies any dysuria, frequency or fever. Patient denies any vaginal bleeding. The patient denies the pain is cramp-like. Review of systems: As per history of present illness and below otherwise all systems reviewed and negative. Past medical history: As per history of present illness and as reviewed below otherwise noncontributory. Surgical history: As per history of present illness and as reviewed below otherwise noncontributory. Social history: See social history for further information Family history: As per history of present illness and as reviewed below otherwise noncontributory. Physical exam: General: Well developed and well nourished. Alert and orientated x 3. Nontoxic in appearance and in no acute distress. Vital signs are stable and have been reviewed by me. Nursing notes were reviewed. HEENT: Atraumatic, normocephalic, pupils equal and reactive bilaterally, negative for conjunctival pallor or scleral icterus, mucous membranes moist, TMs normal bilaterally, throat clear, neck supple, nontender, trachea midline. No drooling or trismus noted. No meningeal signs. No hot potato voice noted. Lungs: Clear to auscultation bilaterally. No wheezes, rales, or rhonchi. Chest nontender. Normal work of breathing, no accessory muscles used. Heart: S1S2, regular rate and rhythm without overt murmur, gallops, or rubs. No JVD. No peripheral edema Abdomen: Soft, nondistended, bilateral lower lateral abdominal tenderness.. Normoactive bowel sounds. Negative for masses or costovertebral tenderness. Skin: Intact, warm, dry. No lesions or rashes noted. Hematologic: No petechiae or purpra. Mucosa appropriate color and normal nail bed color and refill. Extremities: Atraumatic, moves all extremities per self without difficulty or deficits, negative for cords or calf pain. Neurovascular unremarkable. Neuro: Awake, alert, oriented. Cranial nerves II through XII unremarkable. Cerebellum unremarkable. Motor and sensory unremarkable throughout. Exam nonfocal. Psychiatric: Mood and affect are appropriate. Normal thought process. Answering questions appropriately. Notes: *This patient was seen and evaluated during the 2019 SARS-CoV-2 novel coronavirus pandemic period. Community viral transmission is ongoing at time of this encounter and the emergency department is operating under pandemic response procedures. The patient is very tender on both lateral abdominal wall areas. I will obtain a CBC, CMP, urinalysis, and ultrasound. The patient is agreeable with this plan. The patient CBC and CMP are unremarkable. The patient's urine is negative for infection. OB pelvis ultrasound IMPRESSION: Gestational sac with a pole and possibly yolk sac, however no heart tones are detected. The sonographic gestational age is 5 weeks and 0 days which is discordant with the gestational age based on LMP. Findings still may represent a normal early intrauterine . Recommend follow-up beta HCG and ultrasound to confirm viability. The patient's quantitative hCG was 3330 which is consistent with early . I informed the patient of the test results and the need for her to follow-up with her [facility]ATH[facility] [employer]ER. The patient is unsure of when her last menstrual cycle was. The patient states that she has an appointment on Thursday. I have talked with the patient about today's findings, in addition to providing specific details for plan of care. Reassessment at the time of disposition demonstrates that the patient is in no acute distress. The patient is stable for discharge, counseling was provided and we discussed in great detail signs and symptoms that would prompt them to return to the Emergency Department. Medication, follow up and supportive care measures were reviewed and discussed. Voices understanding and is agreeable to plan of care. Denies any further questions or concerns at this time. Diagnostics: CBC, CMP, quantitative hCG, OB pelvis ultrasound Impression: Intrauterine , abdominal pain Plan: 1. You were evaluated today on an emergent basis. Your clinic complaints of abdominal pain was evaluated with blood work which was normal and an ultrasound which showed a gestational sac with a pole and possibly yolk sac, however no heart tones are detected. The sonographic gestational age is 5 weeks and 0 days which is discordant with the gestational age based on LMP. Findings still may represent a normal early intrauterine . Recommend follow-up beta HCG and ultrasound to confirm viability. We did a quantitative hCG and urine was 3330 which is consistent with early . Keep your appointment with your [facility]ER on Thursday for follow-up lab work. 2. You can alternate Tylenol and ibuprofen as needed for pain and fever management. 3. We encourage you to follow up with your primary care provider and/or recommended specialist in the next few days for re-evaluation and further care/management. 4. If your symptoms should worsen, new symptoms develop or any of the signs and symptoms we discussed should arise please return to the emergency room or call 911 (if needed). Definitive disposition and diagnosis as appropriate pending reevaluation and review of above. Bilateral Abdominal Pain Score (Numeric/FACES): 8 - Related Data Allergies Allergy/AdvReac Type Severity Reaction Status Date / Time No Known Allergies Allergy Verified 08/10/21 14:25 Home Meds: Home Meds Omeprazole 20 mg PO DAILY 04/18/21 [History] Ondansetron [Zofran ODT] 4 mg PO ASDIRECTED PRN 04/18/21 [History] Past Medical History HEENT History: Reports: None Cardiovascular History: Reports: None Respiratory History: Reports: None Gastrointestinal History: Reports: Irritable Bowel Syndrome Other Gastrointestinal History: colitis Genitourinary History: Reports: None LEATHER [employer]ER History: Reports: None Musculoskeletal History: Reports: None Neurological History: Reports: None Psychiatric History: Reports: Anxiety Endocrine/Metabolic History: Reports: None Hematologic History: Reports: None Immunologic History: Reports: None Oncologic (Cancer) History: Reports: None Dermatologic History: Reports: None - Infectious Disease History Infectious Disease History: Reports: Chicken Pox - Past Surgical History Head Surgeries/Procedures: Reports: None HEENT Surgical History: Reports: None Cardiovascular Surgical History: Reports: None Respiratory Surgical History: Reports: None GI Surgical History: Reports: Appendectomy Female Surgical History: Reports: None Endocrine Surgical History: Reports: None Neurological Surgical History: Reports: None Musculoskeletal Surgical History: Reports: None Oncologic Surgical History: Reports: None Dermatological Surgical History: Reports: None Social & Family History - Family History Family Medical History: No Pertinent Family History - Tobacco Use Tobacco Use Status *Q: Never Tobacco User - Caffeine Use Caffeine Use: Reports: None - Recreational Drug Use Recreational Drug Use: No ED ROS GENERAL - Review of Systems Review Of Systems: Comprehensive ROS is negative, except as noted in HPI. ED EXAM - Physical Exam Exam: See Below (See dictation) Course - Vital Signs Last Recorded V/S: Last Vital Signs Temp 97.2 F 08/10/21 17:34 Pulse 102 H 08/10/21 17:34 Resp 18 08/10/21 17:34 BP 116/75 08/10/21 14:25 Pulse Ox 99 08/10/21 17:34 - Orders/Labs/Meds Labs: Laboratory Tests 08/10/21 08/10/21 08/10/21 Range/Units 15:00 15:55 15:55 WBC 8.88 (4.0-11.0) K/uL RBC 4.87 (4.30-5.90) M/uL Hgb 14.1 (12.0-16.0) g/dL Hct 42.4 (36.0-46.0) % MCV 87.1 (80.0-98.0) fL MCH 29.0 (27.0-32.0) pg MCHC 33.3 (31.0-37.0) g/dL RDW Std Deviation 43.4 (28.0-62.0) fl RDW Coeff of Kori 14 (11.0-15.0) % Plt Count 282 (150-400) K/uL MPV 9.60 (7.40-12.00) fL Neut % (Auto) 76.2 (48.0-80.0) % Lymph % (Auto) 14.9 L (16.0-40.0) % Ward % (Auto) 7.3 (0.0-15.0) % Eos % (Auto) 1.5 (0.0-7.0) % Baso % (Auto) 0.1 (0.0-1.5) % Neut # (Auto) 6.8 H (1.4-5.7) K/uL Lymph # (Auto) 1.3 (0.6-2.4) K/uL Ward # (Auto) 0.7 (0.0-0.8) K/uL Eos # (Auto) 0.1 (0.0-0.7) K/uL Baso # (Auto) 0.0 (0.0-0.1) K/uL Nucleated RBC % 0.0 /100WBC Nucleated RBCs # 0 K/uL Sodium 139 (136-145) mmol/L Potassium 3.6 (3.5-5.1) mmol/L Chloride 101 (98-107) mmol/L Carbon Dioxide 26.8 (21.0-32.0) mmol/L BUN 7 (7.0-18.0) mg/dL Creatinine 0.7 (0.6-1.0) mg/dL Est Cr Clr Drug Dosing 115.36 mL/min Estimated GFR (MDRD) > 60.0 ml/min Glucose 96 (74-106) mg/dL Calcium 9.2 (8.5-10.1) mg/dL Total Bilirubin 0.7 (0.2-1.0) mg/dL AST 26 (15-37) IU/L ALT 42 (14-63) IU/L Alkaline Phosphatase 72 (46-116) U/L Total Protein 7.8 (6.4-8.2) g/dL Albumin 4.2 (3.4-5.0) g/dL Globulin 3.6 (2.6-4.0) g/dL Albumin/Globulin Ratio 1.2 (0.9-1.6) HCG, Quant mIU/mL Urine Color YELLOW Urine Appearance CLEAR Urine pH 6.0 (5.0-8.0) Ur Specific [place] >= 1.030 (1.001-1.035) Urine Protein NEGATIVE (NEGATIVE) mg/dL Urine Glucose (UA) NEGATIVE (NEGATIVE) mg/dL Urine Ketones NEGATIVE (NEGATIVE) mg/dL Urine Occult Blood NEGATIVE (NEGATIVE) Urine Nitrite NEGATIVE (NEGATIVE) Urine Bilirubin NEGATIVE (NEGATIVE) Urine Urobilinogen 0.2 (<2.0) EU/dL Ur Leukocyte Esterase NEGATIVE (NEGATIVE) 08/10/21 Range/Units 15:55 WBC (4.0-11.0) K/uL RBC (4.30-5.90) M/uL Hgb (12.0-16.0) g/dL Hct (36.0-46.0) % MCV (80.0-98.0) fL MCH (27.0-32.0) pg MCHC (31.0-37.0) g/dL RDW Std Deviation (28.0-62.0) fl RDW Coeff of Kori (11.0-15.0) % Plt Count (150-400) K/uL MPV (7.40-12.00) fL Neut % (Auto) (48.0-80.0) % Lymph % (Auto) (16.0-40.0) % Ward % (Auto) (0.0-15.0) % Eos % (Auto) (0.0-7.0) % Baso % (Auto) (0.0-1.5) % Neut # (Auto) (1.4-5.7) K/uL Lymph # (Auto) (0.6-2.4) K/uL Ward # (Auto) (0.0-0.8) K/uL Eos # (Auto) (0.0-0.7) K/uL Baso # (Auto) (0.0-0.1) K/uL Nucleated RBC % /100WBC Nucleated RBCs # K/uL Sodium (136-145) mmol/L Potassium (3.5-5.1) mmol/L Chloride (98-107) mmol/L Carbon Dioxide (21.0-32.0) mmol/L BUN (7.0-18.0) mg/dL Creatinine (0.6-1.0) mg/dL Est Cr Clr Drug Dosing mL/min Estimated GFR (MDRD) ml/min Glucose (74-106) mg/dL Calcium (8.5-10.1) mg/dL Total Bilirubin (0.2-1.0) mg/dL AST (15-37) IU/L ALT (14-63) IU/L Alkaline Phosphatase (46-116) U/L Total Protein (6.4-8.2) g/dL Albumin (3.4-5.0) g/dL Globulin (2.6-4.0) g/dL Albumin/Globulin Ratio (0.9-1.6) HCG, Quant 3330.0 mIU/mL Urine Color Urine Appearance Urine pH (5.0-8.0) Ur Specific [place] (1.001-1.035) Urine Protein (NEGATIVE) mg/dL Urine Glucose (UA) (NEGATIVE) mg/dL Urine Ketones (NEGATIVE) mg/dL Urine Occult Blood (NEGATIVE) Urine Nitrite (NEGATIVE) Urine Bilirubin (NEGATIVE) Urine Urobilinogen (<2.0) EU/dL Ur Leukocyte Esterase (NEGATIVE) Meds: Medications Discontinued Medications Generic Name Dose Route Start Last Admin Trade Name Freq PRN Reason Stop Dose Admin Sodium Chloride 1,000 mls @ 999 mls/hr 08/10/21 15:25 08/10/21 15:50 Normal Saline IV 08/10/21 16:25 999 mls/hr .BOLUS ONE Administration Ondansetron HCl 4 mg 08/10/21 15:25 08/10/21 15:50 Ondansetron 4 Mg/2 Ml Sdv IVPUSH 08/10/21 15:26 4 mg ONETIME ONE Administration Sodium Chloride 10 ml 08/10/21 15:25 08/10/21 15:50 Sodium Chloride 0.9% 10 Ml Syringe FLUSH 10 ml ASDIRECTED PRN Administration Keep Vein Open Sodium Chloride 2.5 ml 08/10/21 15:25 08/10/21 15:50 Sodium Chloride 0.9% 2.5 Ml Syringe FLUSH 2.5 ml ASDIRECTED PRN Administration Keep Vein Open Departure - Departure Time of Disposition: 17:22 Disposition: Home, Self-Care 01 Condition: Good Clinical Impression: Intrauterine Abdominal pain Qualifiers: Abdominal location: lower abdomen, unspecified Qualified Code(s): R10.30 - Lower abdominal pain, unspecified - Discharge Information *PRESCRIPTION DRUG MONITORING PROGRAM REVIEWED*: Not Applicable *COPY OF PRESCRIPTION DRUG MONITORING REPORT IN PATIENT TANK: Not Applicable Instructions: First Trimester of , [id number], Abdominal Pain, Adult, [id number] Referrals: Dominga Cochran MD [Primary Care Provider] - Forms: ED Department Discharge Additional Instructions: The following information is given to patients seen in the emergency department who are being discharged to home. This information is to outline your options for follow-up care. We provide all patients seen in our emergency department with a follow-up referral. The need for follow-up, as well as the timing and circumstances, are variable depending upon the specifics of your emergency department visit. If you don't have a primary care physician on staff, we will provide you with a referral. We always advise you to contact your personal physician following an emergency department visit to inform them of the circumstance of the visit and for follow-up with them and/or the need for any referrals to a consulting specialist. The emergency department will also refer you to a specialist when appropriate. This referral assures that you have the opportunity for follow-up care with a specialist. All of these measure are taken in an effort to provide you with optimal care, which includes your follow-up. Under all circumstances we always encourage you to contact your private physician who remains a resource for coordinating your care. When calling for follow-up care, please make the office aware that this follow-up is from your recent emergency room visit. If for any reason you are refused follow-up, please contact the [facility] Emergency Department at and asked to speak to the emergency department charge nurse. [facility] - [facility] [address] [place] [id number] [address] Plan: 1. You were evaluated today on an emergent basis. Your clinic complaints of abdominal pain was evaluated with blood work which was normal and an ultrasound which showed a gestational sac with a pole and possibly yolk sac, however no heart tones are detected. The sonographic gestational age is 5 weeks and 0 days which is discordant with the gestational age based on LMP. Findings still may represent a normal early intrauterine . Recommend follow-up beta HCG and ultrasound to confirm viability. We did a quantitative hCG and urine was 3330 which is consistent with early . Keep your appointment with your LEATHER CLEANER on Thursday for follow-up lab work. 2. You can alternate Tylenol and ibuprofen as needed for pain and fever management. 3. We encourage you to follow up with your primary care provider and/or recommended specialist in the next few days for re-evaluation and further care/management. 4. If your symptoms should worsen, new symptoms develop or any of the signs and symptoms we discussed should arise please return to the emergency room or call [phone] (if needed).
--- NOTE | 2021-08-10 16:36 | US ---
INDICATION: Pelvic pain, positive test TECHNIQUE: Ultrasound OB pelvis transabdominal and transvaginal. Real time callaway scale imaging of the pelvis was performed. COMPARISON: None FINDINGS: A gestational sac is seen within the endometrial canal. There is a pole with a crown-rump length measuring 1.8 cm, which corresponds to a gestational age of 5 weeks and 0 days and an estimated date of delivery of 04/12/2022. No heart tones are detected. These measurements are discordant from the gestational age based on LMP. There is a possible faint yolk sac. The right ovary measures 3.1 x 2.7 x 2.4 cm and the left ovary measures 2.6 x 1.9 x 1.7 cm. No adnexal masses seen. No free fluid is present. IMPRESSION: Gestational sac with a pole and possibly yolk sac, however no heart tones are detected. The sonographic gestational age is 5 weeks and 0 days which is discordant with the gestational age based on LMP. Findings still may represent a normal early intrauterine . Recommend follow-up beta HCG and ultrasound to confirm viability. Dictated by Nadege James MD @ 08/10/2021 4:36:06 PM (Electronically Signed)
[2021-08-10 16:37] LABS: BLOOD UREA NITROGEN,BUN 7 mg/dL (7.0-18.0); CARBON DIOXIDE,CO2 26.8 mmol/L (21.0-32.0); CHLORIDE,CL 101 mmol/L (98-107); GLUCOSE RANDOM 96 mg/dL (74-106); POTASSIUM,K 3.6 mmol/L (3.5-5.1); SODIUM,NA 139 mmol/L (136-145)
== END 2021-08-10 17:34 | disposition home or self-care (01) ==
LOC: MW.ED 13:08
DX: O99.891 Other specified diseases and conditions complicating pregnancy (principal); R10.31 Right lower quadrant pain; R10.32 Left lower quadrant pain; Z3A.09 9 weeks gestation of pregnancy
CPT/HCPCS: 36415; 76801; 80053; 81003; 84702; 85025; 96374; 99284; J2405; J7030

== ENCOUNTER 2021-10-01 13:57 | Emergency (ER) | payer BC ==
[2021-10-01] MEDS ORDERED: Sodium Chloride 0.9% 1,000 ML IV ONE ×2 (14:29→15:49)
--- NOTE | 2021-10-01 14:34 | EDM.PDOC ---
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 Patient states that for the past month she had a difficult keep anything down and has not been urinating. She went to her HOME AND FAMILY LIVING PROFESSOR yesterday and had labs drawn and ultrasound that showed the baby was in the right place. She denies any vaginal bleeding. She denies any abdominal pain. She denies any fever chills or other complaints. - Related Data Allergies Allergy/AdvReac Type Severity Reaction Status Date / Time No Known Allergies Allergy Verified 10/01/21 14:18 Home Meds: Home Meds Ondansetron [Zofran ODT] 4 mg PO ASDIRECTED PRN 04/18/21 [History] Past Medical History HEENT History: Reports: None Cardiovascular History: Reports: None Respiratory History: Reports: None Gastrointestinal History: Reports: Irritable Bowel Syndrome Other Gastrointestinal History: colitis Genitourinary History: Reports: None PROCESS PROJECT ENGINEER History: Reports: None Musculoskeletal History: Reports: None Neurological History: Reports: None Psychiatric History: Reports: Anxiety Endocrine/Metabolic History: Reports: None Hematologic History: Reports: None Immunologic History: Reports: None Oncologic (Cancer) History: Reports: None Dermatologic History: Reports: None - Infectious Disease History Infectious Disease History: Reports: Chicken Pox - Past Surgical History Head Surgeries/Procedures: Reports: None HEENT Surgical History: Reports: None Cardiovascular Surgical History: Reports: None Respiratory Surgical History: Reports: None GI Surgical History: Reports: Appendectomy Female Surgical History: Reports: None Endocrine Surgical History: Reports: None Neurological Surgical History: Reports: None Musculoskeletal Surgical History: Reports: None Oncologic Surgical History: Reports: None Dermatological Surgical History: Reports: None Social & Family History - Family History Family Medical History: No Pertinent Family History - Tobacco Use Second Hand Smoke Exposure: No - Caffeine Use Caffeine Use: Reports: None - Recreational Drug Use Recreational Drug Use: No ED ROS GENERAL - Review of Systems Review Of Systems: See Below Constitutional: Reports: No Symptoms HEENT: Reports: No Symptoms Respiratory: Reports: No Symptoms Cardiovascular: Reports: No Symptoms Endocrine: Reports: No Symptoms GI/Abdominal: Reports: Nausea, Vomiting : Reports: No Symptoms Musculoskeletal: Reports: No Symptoms Skin: Reports: No Symptoms Neurological: Reports: No Symptoms Psychiatric: Reports: No Symptoms Hematologic/Lymphatic: Reports: No Symptoms Immunologic: Reports: No Symptoms ED EXAM - Physical Exam Exam: See Below Exam Limited By: No Limitations General Appearance: Alert, WD/WN, No Apparent Distress Eye Exam: Bilateral Eye: EOMI, PERRL Ears: Normal External Exam Nose: Normal Inspection Head: Atraumatic, Normocephalic Neck: Normal Inspection Respiratory/Chest: No Respiratory Distress, Lungs Clear, Normal Breath Sounds Cardiovascular: Normal Peripheral Pulses, Regular Rate, Rhythm GI/Abdominal Exam: Normal Bowel Sounds, Soft, Non-Tender Extremities: Normal Inspection Neurological: Alert, Oriented, Normal Cognition, Normal Gait Course - Vital Signs Last Recorded V/S: Last Vital Signs Temp 97.7 F 10/01/21 14:14 Pulse 84 10/01/21 15:51 Resp 16 10/01/21 15:51 BP 113/75 10/01/21 15:51 Pulse Ox 100 10/01/21 15:51 - Orders/Labs/Meds Orders: Active Orders 24 hr Category Date Time Status Sodium Chloride 0.9% [Normal Saline] 1,000 ml Med 10/01/21 15:49 Active IV .Bolus Medication Orders Sodium Chloride (Normal Saline) 1,000 mls @ 1,000 mls/hr IV .Bolus ONE Stop: 10/01/21 16:48 Last Admin: 10/01/21 15:53 Dose: 1,000 mls/hr Documented by: REBEKAH Labs: Laboratory Tests 10/01/21 Range/Units 14:35 Sodium 136 (136-145) mmol/L Potassium 3.5 (3.5-5.1) mmol/L Chloride 100 (98-107) mmol/L Carbon Dioxide 26.6 (21.0-32.0) mmol/L BUN 8 (7.0-18.0) mg/dL Creatinine 0.5 L (0.6-1.0) mg/dL Est Cr Clr Drug Dosing 161.50 mL/min Estimated GFR (MDRD) > 60.0 ml/min Glucose 75 (74-106) mg/dL Calcium 9.0 (8.5-10.1) mg/dL Total Bilirubin 0.9 (0.2-1.0) mg/dL AST 17 (15-37) IU/L ALT 20 (14-63) IU/L Alkaline Phosphatase 49 (46-116) U/L Total Protein 7.3 (6.4-8.2) g/dL Albumin 3.3 L (3.4-5.0) g/dL Globulin 4.0 (2.6-4.0) g/dL Albumin/Globulin Ratio 0.8 L (0.9-1.6) Meds: Medications Generic Name Dose Route Start Last Admin Trade Name Freq PRN Reason Stop Dose Admin Sodium Chloride 1,000 mls @ 1,000 mls/hr 10/01/21 15:49 10/01/21 15:53 Normal Saline IV 10/01/21 16:48 1,000 mls/hr .Bolus ONE Administration Discontinued Medications Generic Name Dose Route Start Last Admin Trade Name Freq PRN Reason Stop Dose Admin Sodium Chloride 1,000 mls @ 999 mls/hr 10/01/21 14:29 10/01/21 14:39 Normal Saline IV 10/01/21 15:29 999 mls/hr .BOLUS ONE Administration Ondansetron HCl 4 mg 10/01/21 14:43 10/01/21 14:48 Ondansetron 4 Mg/2 Ml Sdv IVPUSH 10/01/21 14:44 4 mg ONETIME ONE Administration - Re-Assessments/Exams Free Text/Narrative Re-Assessment/Exam: 10/01/21 16:02 Patient's labs reviewed creatinine normal patient feels better after liter fluids now tolerating p.o. patient will be discharged to follow-up with her HOME AND FAMILY LIVING PROFESSOR and instructed to continue take her antiemetics given to her by her PROCESS PROJECT ENGINEER Departure - Departure Time of Disposition: 16:02 Disposition: Home, Self-Care 01 Condition: Good Clinical Impression: Hyperemesis gravidarum - Discharge Information *PRESCRIPTION DRUG MONITORING PROGRAM REVIEWED*: Not Applicable *COPY OF PRESCRIPTION DRUG MONITORING REPORT IN PATIENT TANK: Not Applicable Instructions: Hyperemesis Gravidarum Referrals: PCP,None [Primary Care Provider] - Forms: ED Department Discharge Additional Instructions: You were seen today for vomiting while being . We gave you IV fluids help hydrate you up and also gave you some antinausea medication. Please continue take the medication your HOME AND FAMILY LIVING PROFESSOR day before your nausea. If you have any other concerning signs or symptoms please return to the ED. The following information is given to patients seen in the emergency department who are being discharged to home. This information is to outline your options for follow-up care. We provide all patients seen in our emergency department with a follow-up referral. The need for follow-up, as well as the timing and circumstances, are variable depending upon the specifics of your emergency department visit. If you don't have a primary care physician on staff, we will provide you with a referral. We always advise you to contact your personal physician following an emergency department visit to inform them of the circumstance of the visit and for follow-up with them and/or the need for any referrals to a consulting specialist. The emergency department will also refer you to a specialist when appropriate. This referral assures that you have the opportunity for follow-up care with a specialist. All of these measure are taken in an effort to provide you with optimal care, which includes your follow-up. Under all circumstances we always encourage you to contact your private physician who remains a resource for coordinating your care. When calling for follow-up care, please make the office aware that this follow-up is from your recent emergency room visit. If for any reason you are refused follow-up, please contact the [facility] Emergency Department at and asked to speak to the emergency department charge nurse. Please follow up with your primary care physician. If you do not have a primary care physician, see below: [facility] [address] [place] [id number] [facility] [address] [place] [id number] Sepsis Event Note (ED) - Evaluation Sepsis Screening Result: No Definite Risk - Focused Exam Vital Signs: Vital Signs Temp Pulse Resp BP Pulse Ox 10/01/21 15:51 84 16 113/75 100 10/01/21 14:14 97.7 F 93 20 121/81 98 - My Orders Last 24 Hours: My Active Orders 10/01/21 15:49 Sodium Chloride 0.9% [Normal Saline] 1,000 ml IV .Bolus - Assessment/Plan Last 24 Hours: My Active Orders 10/01/21 15:49 Sodium Chloride 0.9% [Normal Saline] 1,000 ml IV .Bolus Plan: Patient is a 21-year-old female who currently around 13 weeks. Presents today for vomiting and difficult keeping food down. Patient states is also not urinating. We will obtain basic labs give IV fluids and reassess.
[2021-10-01] MEDS ORDERED: Ondansetron 4 MG/2 ML SDV IVPUSH ONE (14:43)
[2021-10-01 15:49] LABS: BLOOD UREA NITROGEN,BUN 8 mg/dL (7.0-18.0); CARBON DIOXIDE,CO2 26.6 mmol/L (21.0-32.0); CHLORIDE,CL 100 mmol/L (98-107); GLUCOSE RANDOM 75 mg/dL (74-106); POTASSIUM,K 3.5 mmol/L (3.5-5.1); SODIUM,NA 136 mmol/L (136-145)
== END 2021-10-01 16:19 | disposition home or self-care (01) ==
LOC: MW.ED 13:57
DX: O21.0 Mild hyperemesis gravidarum (principal); Z3A.13 13 weeks gestation of pregnancy
CPT/HCPCS: 36415; 80053; 96374; 99284; J2405; J7030

== ENCOUNTER 2021-10-14 07:57 | Emergency (ER) | payer BC ==
[2021-10-14] MEDS ORDERED: Acetaminophen 325 MG Tab PO ONE (08:21)
--- NOTE | 2021-10-14 08:25 | EDM.PDOC ---
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 She is 15 weeks . She had some minor vaginal spotting yesterday but not presently. No vomiting or diarrhea. No pain with urination. No fevers. No exacerbating or alleviating factors. Moderate symptoms. pt rh + Bilateral Lower Abdomen Pain Score (Numeric/FACES): 7 - Related Data Allergies Allergy/AdvReac Type Severity Reaction Status Date / Time No Known Allergies Allergy Verified 10/01/21 14:18 Home Meds: Home Meds Ondansetron [Zofran ODT] 4 mg PO ASDIRECTED PRN 04/18/21 [History] Metoclopramide [Reglan] 5 mg PO Q6H 10/14/21 [History] Past Medical History HEENT History: Reports: None Cardiovascular History: Reports: None Respiratory History: Reports: None Gastrointestinal History: Reports: Irritable Bowel Syndrome Other Gastrointestinal History: colitis Genitourinary History: Reports: None MUSIC LIBRARY ASSISTANT History: Reports: Musculoskeletal History: Reports: None Neurological History: Reports: None Psychiatric History: Reports: Anxiety Endocrine/Metabolic History: Reports: None Hematologic History: Reports: None Immunologic History: Reports: None Oncologic (Cancer) History: Reports: None Dermatologic History: Reports: None - Infectious Disease History Infectious Disease History: Reports: Chicken Pox - Past Surgical History Head Surgeries/Procedures: Reports: None HEENT Surgical History: Reports: None Cardiovascular Surgical History: Reports: None Respiratory Surgical History: Reports: None GI Surgical History: Reports: Appendectomy Female Surgical History: Reports: None Endocrine Surgical History: Reports: None Neurological Surgical History: Reports: None Musculoskeletal Surgical History: Reports: None Oncologic Surgical History: Reports: None Dermatological Surgical History: Reports: None Social & Family History - Family History Family Medical History: No Pertinent Family History - Tobacco Use Tobacco Use Status *Q: Never Tobacco User Second Hand Smoke Exposure: No - Caffeine Use Caffeine Use: Reports: None - Recreational Drug Use Recreational Drug Use: No ED ROS GENERAL - Review of Systems Review Of Systems: Comprehensive ROS is negative, except as noted in HPI. ED EXAM, GENERAL - Physical Exam Exam: See Below Free Text/Narrative:: CONSTITUTIONAL: well appearing in no acute distress SKIN: dry, and intact without rash HENT: Normocephalic, atraumatic, NECK: normal range of motion PULMONARY: normal chest rise and fall, no respiratory distress or stridor GI: Diffuse mild tenderness. No guarding rebound or rigidity NEUROLOGIC: normal speech, moves all extremities, grossly non-focal MUSCULOSKELETAL: no gross deformities, atraumatic. Patient states the entirety of her lower back has pain but there is no objective specific area of tenderness. PSYCHIATRIC: normal mood and affect Course - Vital Signs Text/Narrative:: Differential diagnosis: Abdominal pain and , UTI, abdominal abscess, miscarriage, other Patient presents as outlined above. Laboratory work-up is relatively unrevealing. Patient received Tylenol and feeling much better with no subj ective or objective abdominal pain/tenderness upon reexamination. Patient is Rh+. heart tones are noted. Patient has had prior ultrasound demonstrating IUP she states. DC with return precautions PCP/MUSIC LIBRARY ASSISTANT follow-up Last Recorded V/S: Last Vital Signs Temp 36.6 C 10/14/21 09:01 Pulse 75 10/14/21 09:01 Resp 16 10/14/21 09:01 BP 112/68 10/14/21 09:01 Pulse Ox 100 10/14/21 09:01 - Orders/Labs/Meds Labs: Laboratory Tests 10/14/21 10/14/21 10/14/21 Range/Units 08:43 08:43 09:00 WBC 4.58 (4.0-11.0) K/uL RBC 3.95 L (4.30-5.90) M/uL Hgb 11.6 L (12.0-16.0) g/dL Hct 34.2 L (36.0-46.0) % MCV 86.6 (80.0-98.0) fL MCH 29.4 (27.0-32.0) pg MCHC 33.9 (31.0-37.0) g/dL RDW Std Deviation 43.6 (28.0-62.0) fl RDW Coeff of Kori 14 (11.0-15.0) % Plt Count 194 (150-400) K/uL MPV 10.10 (7.40-12.00) fL Neut % (Auto) 70.3 (48.0-80.0) % Lymph % (Auto) 21.2 (16.0-40.0) % [place] % (Auto) 7.2 (0.0-15.0) % Eos % (Auto) 0.9 (0.0-7.0) % Baso % (Auto) 0.4 (0.0-1.5) % Neut # (Auto) 3.2 (1.4-5.7) K/uL Lymph # (Auto) 1.0 (0.6-2.4) K/uL [place] # (Auto) 0.3 (0.0-0.8) K/uL Eos # (Auto) 0.0 (0.0-0.7) K/uL Baso # (Auto) 0.0 (0.0-0.1) K/uL Nucleated RBC % 0.0 /100WBC Nucleated RBCs # 0 K/uL Sodium 137 (136-145) mmol/L Potassium 3.7 (3.5-5.1) mmol/L Chloride 103 (98-107) mmol/L Carbon Dioxide 25.4 (21.0-32.0) mmol/L BUN 6 L (7.0-18.0) mg/dL Creatinine 0.5 L (0.6-1.0) mg/dL Est Cr Clr Drug Dosing 161.50 mL/min Estimated GFR (MDRD) > 60.0 ml/min Glucose 82 (74-106) mg/dL Calcium 8.8 (8.5-10.1) mg/dL Total Bilirubin 0.5 (0.2-1.0) mg/dL AST 12 L (15-37) IU/L ALT 18 (14-63) IU/L Alkaline Phosphatase 45 L (46-116) U/L Total Protein 6.8 (6.4-8.2) g/dL Albumin 3.2 L (3.4-5.0) g/dL Globulin 3.6 (2.6-4.0) g/dL Albumin/Globulin Ratio 0.9 (0.9-1.6) Lipase 81 (73-393) U/L Urine Color YELLOW Urine Appearance CLEAR Urine pH 7.0 (5.0-8.0) Ur Specific [place] 1.020 (1.001-1.035) Urine Protein NEGATIVE (NEGATIVE) mg/dL Urine Glucose (UA) NEGATIVE (NEGATIVE) mg/dL Urine Ketones 15 H (NEGATIVE) mg/dL Urine Occult Blood NEGATIVE (NEGATIVE) Urine Nitrite NEGATIVE (NEGATIVE) Urine Bilirubin NEGATIVE (NEGATIVE) Urine Urobilinogen 1.0 (<2.0) EU/dL Ur Leukocyte Esterase NEGATIVE (NEGATIVE) Meds: Medications Discontinued Medications Generic Name Dose Route Start Last Admin Trade Name Tej PRN Reason Stop Dose Admin Acetaminophen 975 mg 10/14/21 08:21 10/14/21 08:44 Acetaminophen 325 Mg Tab PO 10/14/21 08:22 975 mg NOW ONE Administration Departure - Departure Time of Disposition: 09:56 Disposition: DC/Tfer to Medicaid Nur [facility] 64 Condition: Good Clinical Impression: Abdominal pain affecting - Discharge Information Instructions: Abdominal Pain During Forms: ED Department Discharge Additional Instructions: Return for increased pain, vaginal bleeding, fevers, change or worsening condition. Tylenol for any discomfort. Follow-up with primary care doctor and MUSIC LIBRARY ASSISTANT this week. The following information is given to patients seen in the emergency department who are being discharged to home. This information is to outline your options for follow-up care. We provide all patients seen in our emergency department with a follow-up referral. The need for follow-up, as well as the timing and circumstances, are variable depending upon the specifics of your emergency department visit. If you don't have a primary care physician on staff, we will provide you with a referral. We always advise you to contact your personal physician following an emergency department visit to inform them of the circumstance of the visit and for follow-up with them and/or the need for any referrals to a consulting specialist. The emergency department will also refer you to a specialist when appropriate. This referral assures that you have the opportunity for follow-up care with a specialist. All of these measure are taken in an effort to provide you with optimal care, which includes your follow-up. Primary care clinics in the area: [facility] [address] [place] [address] [facility] [address] [place] [address] Under all circumstances we always encourage you to contact your private physician who remains a resource for coordinating your care. When calling for follow-up care, please make the office aware that this follow-up is from your recent emergency room visit. If for any reason you are refused follow-up, please contact the [facility] Emergency Department at and asked to speak to the emergency department charge nurse. Sepsis Event Note (ED) - Evaluation Sepsis Screening Result: No Definite Risk - Focused Exam Vital Signs: Vital Signs Temp Pulse Resp BP Pulse Ox 10/14/21 09:01 36.6 C 75 16 112/68 100 10/14/21 08:01 36.1 C 93 16 122/76 100
[2021-10-14 09:29] LABS: BLOOD UREA NITROGEN,BUN 6 mg/dL (7.0-18.0); CARBON DIOXIDE,CO2 25.4 mmol/L (21.0-32.0); CHLORIDE,CL 103 mmol/L (98-107); GLUCOSE RANDOM 82 mg/dL (74-106); LIPASE 81 U/L (73-393); POTASSIUM,K 3.7 mmol/L (3.5-5.1); SODIUM,NA 137 mmol/L (136-145)
== END 2021-10-14 10:03 ==
LOC: MW.ED 07:57
DX: O99.891 Other specified diseases and conditions complicating pregnancy (principal); R10.32 Left lower quadrant pain; R10.31 Right lower quadrant pain; Z3A.15 15 weeks gestation of pregnancy
CPT/HCPCS: 36415; 80053; 81003; 83690; 85025; 99284; A9270

== ENCOUNTER 2023-05-03 07:27 | Emergency (ER) | payer BC | END 2023-05-03 08:19 | disposition home or self-care (01) | LOC: MW.ED 07:27 | DX: J02.9 Acute pharyngitis, unspecified (principal) | CPT/HCPCS: 87651-QW; 99283 ==

== ENCOUNTER 2024-04-22 09:56 | Emergency (ER) | payer BC ==
[2024-04-22 10:26] LABS: APPEARANCE,URINE CLOUDY; BILIRUBIN,URINE NEGATIVE (NEGATIVE); COLOR,URINE YELLOW; GLUCOSE,URINE NEGATIVE (NEGATIVE); KETONES,URINE NEGATIVE (NEGATIVE); LEUKOCYTE ESTERASE,URINE MODERATE (NEGATIVE); NITRITE,URINE POSITIVE (NEGATIVE); OCCULT BLOOD,URINE SMALL (NEGATIVE); PROTEIN,URINE 100 mg/dL (NEGATIVE); UROBILINOGEN,URINE 0.2 EU/dL (<2.0)
[2024-04-22 10:42] LABS: EPITHELIAL CELLS,URINE MODERATE (NONE-FEW); WBC,URINE TO NUMEROUS TO COUNT (0-5/HPF)
[2024-04-22 10:43] LABS: BACTERIA,URINE 1+ (NEGATIVE)
== END 2024-04-22 11:22 | disposition home or self-care (01) ==
LOC: MW.ED 09:56
DX: N39.0 Urinary tract infection, site not specified (principal); Z79.899 Other long term (current) drug therapy
CPT/HCPCS: 81001; 81025; 99284

== ENCOUNTER 2024-05-04 18:22 | Emergency (ER) | payer BC ==
[2024-05-04 19:20] LABS: BILIRUBIN,URINE NEGATIVE (NEGATIVE); COLOR,URINE YELLOW; GLUCOSE,URINE NEGATIVE (NEGATIVE); KETONES,URINE TRACE mg/dL (NEGATIVE); LEUKOCYTE ESTERASE,URINE MODERATE (NEGATIVE); NITRITE,URINE NEGATIVE (NEGATIVE); OCCULT BLOOD,URINE TRACE-INTACT (NEGATIVE); PROTEIN,URINE NEGATIVE (NEGATIVE); UROBILINOGEN,URINE 0.2 EU/dL (<2.0)
[2024-05-04 19:35] LABS: APPEARANCE,URINE SLT CLOUDY
[2024-05-04 19:36] LABS: BACTERIA,URINE FEW (NEGATIVE); EPITHELIAL CELLS,URINE FEW (NONE-FEW); RBC,URINE 0-2 (0-2/HPF); WBC,URINE 30-35 (0-5/HPF)
== END 2024-05-04 20:30 | disposition home or self-care (01) ==
LOC: MW.ED 18:22
DX: N39.0 Urinary tract infection, site not specified (principal); Z75.8 Other problems related to medical facilities and other health care
CPT/HCPCS: 81001; 87086; 99283; 99284